=== PATIENT | male | born 1945 | race Caucasian/White ===

== ENCOUNTER 2018-12-13 09:22 | Inpatient (IN) | payer MEDICARE, OTHER ==
[~2018-12-13] VITALS: Ht 180.3 cm; Wt 127.9 kg
[2018-12-13] VITALS (11 sets, daily range): BP systolic 132–187; BP diastolic 67–87
[2018-12-13] MEDS ORDERED: nitroGLYCERIN 0.4mg SUBLingual tab SL PRN ×2 (09:45→19:35)
[2018-12-13] MEDS ORDERED: aspirin 325mg tablet PO ONE (10:35)
[2018-12-13 10:48] LABS: BASOPHILS % (AUTO) 0.5 % (0-1); EOSINOPHILS # (AUTO) 0.2 X10'3 (0-0.9); EOSINOPHILS % (AUTO) 2.6 % (0-6); HEMATOCRIT 40.1 % (42.0-52.0); HEMOGLOBIN 13.9 g/dl (14.0-17.9); LYMPHOCYTES # (AUTO) 1.3 X10'3 (1.1-4.8); LYMPHOCYTES % (AUTO) 17.5 % (21-51); MEAN CORPUSCULAR HEMOGLOBIN 31.5 PG (27.0-31.0); MEAN CORPUSCULAR HGB CONC 34.6 g/dL (33.0-36.5); MEAN CORPUSCULAR VOLUME 90.9 FL (78-98); MEAN PLATELET VOLUME 8.5 FL (7.4-10.4); MONOCYTES # (AUTO) 0.6 X10'3 (0-0.9); MONOCYTES % (AUTO) 7.9 % (2-12); NEUTROPHILS # (AUTO) 5.4 X10'3 (1.8-7.7); NEUTROPHILS % (AUTO) 71.5 % (42-75); PLATELET COUNT 184 X10'3 (140-440); RED BLOOD COUNT 4.41 X10'6 (4.70-6.10); RED CELL DISTRIBUTION WIDTH 13.5 % (11.5-14.5); WHITE BLOOD COUNT 7.6 X10'3 (4.5-11.0)
[2018-12-13 10:58] LABS: ALANINE AMINOTRANSFERASE 20 U/L (12-78); ALBUMIN 3.4 G/DL (3.4-5.0); ALBUMIN/GLOBULIN RATIO 1.1 (1.1-1.5); ALKALINE PHOSPHATASE 69 IU/L (46-116); ANION GAP 6 (8-16); ASPARTATE AMINO TRANSFERASE 17 U/L (10-37); BILIRUBIN,TOTAL 0.6 MG/DL (0.1-1.0); BLOOD UREA NITROGEN 20 MG/DL (7-18); BUN/CREATININE RATIO 17.4 (5.4-32.0); CALCIUM 8.2 MG/DL (8.5-10.1); CHLORIDE 107 MMOL/L (99-107); CREATININE 1.15 MG/DL (0.60-1.10); GLUCOSE 170 MG/DL (70-104); PARTIAL THROMBOPLASTIN TIME 31 SECONDS (22-32); POTASSIUM 3.5 MMOL/L (3.5-5.1); SODIUM 143 MMOL/L (135-145); TOTAL CARBON DIOXIDE 30.1 MMOL/L (24-32); TOTAL PROTEIN 6.4 G/DL (6.4-8.2); eGFR 63 ML/MIN
[2018-12-13] MEDS ORDERED: heparin 25,000 UNIT/250ml bag 250 ML IV SCH (11:07)
[2018-12-13] MEDS ORDERED: heparin 10,000 units/1 ML INJ IV ONE ×2 (11:10→11:15)
[2018-12-13] MEDS: normal saline 1000ml 1,000 ML IV SCH ×3 (11:27→23:24)
[2018-12-13] MEDS ORDERED: mag hydrox/Alum hydrox/simeth 30ml oral suspension PO PRN (11:30)
[2018-12-13] MEDS ORDERED: acetaminophen 325mg tablet PO PRN (11:30)
[2018-12-13] MEDS ORDERED: morphine 2 MG/ML inj. syringe IV PRN ×2 (11:30)
[2018-12-13] MEDS ORDERED: ondansetron/PF 4mg/2ml inj IV PRN (11:30)
[2018-12-13] MEDS ORDERED: magnesium hydroxide 30ml (MOM) UD suspension PO PRN (11:30)
[2018-12-13] MEDS ORDERED: POTA10TA15 PO (12:53)
[2018-12-13] MEDS ORDERED: ASPI-1265 PO (12:53)
[2018-12-13] MEDS ORDERED: ATEN100T PO (12:53)
[2018-12-13] MEDS ORDERED: OMEP20CA11 PO (12:53)
[2018-12-13] MEDS ORDERED: LIDO700A32 TOP (12:56)
[2018-12-13] MEDS ORDERED: METH500T6 PO (12:56)
[2018-12-13] MEDS ORDERED: GABA-532 PO (12:56)
[2018-12-13] MEDS ORDERED: DICL100G15 TOP (12:56)
[2018-12-13] MEDS ORDERED: LISI40TA4 PO (12:56)
[2018-12-13] MEDS ORDERED: HYDR25TA4 PO (12:56)
[2018-12-13] MEDS ORDERED: MSC30T PO (12:59)
[2018-12-13] MEDS ORDERED: HYDR-3965 PO (12:59)
[2018-12-13] MEDS ORDERED: MULT1TAB74 PO (12:59)
[2018-12-13] MEDS ORDERED: BETA1TAB20 PO (12:59)
[2018-12-13] MEDS ORDERED: normal saline 1000ml 1,000 ML IV SCH (13:20)
--- NOTE | 2018-12-13 14:39 | NUR ---
PAGER ID: [phone] MESSAGE: Good afternoon Dr. Franky Mccormick in 310 has quite elevated BP's. He is currently 162/106. He is slated to have a angiogram at 1700. Can I get an antihypertensive please? Art, [phone]
[2018-12-13] MEDS ORDERED: hydrALAZINE 20mg/ml inj. IV PRN (14:45)
[2018-12-13] MEDS ORDERED: DICLOFENAC SODIUM 2 GM TOP PRN (14:45)
[2018-12-13] MEDS ORDERED: DICLOFENAC TP (15:00)
[2018-12-13] MEDS ORDERED: LORazepam 1 MG tablet PO ONE (15:00)
[2018-12-13] MEDS ORDERED: diphenhydrAMINE 25mg capsule PO ONE (15:00)
--- NOTE | 2018-12-13 15:35 | NUR ---
Pt prepped for angiogram. Second IV started in pt left arm.
[2018-12-13] MEDS ORDERED: non-formulary drug (Methocarbamol 2 TAB) PO SCH (16:00)
--- NOTE | 2018-12-13 16:13 | NUR ---
Lab obtaining samples
--- NOTE | 2018-12-13 17:10 | NUR ---
PAGER ID: [phone] MESSAGE: Pt Jace in 310 is a diabetic. I don't have any coverage for him. If possible, can you put orders in? Thanks, Art [phone]
[2018-12-13] MEDS ORDERED: iohexol 350MG/ML 100ml bottle IV ONE (17:23)
[2018-12-13] MEDS ORDERED: LIDOcaine 1% (10mg/ml)w/preservative injection 20ml MDV ONE (17:23)
[2018-12-13] MEDS ORDERED: midazolam 2 mg/2 ml injection ONE ×2 (17:23→17:55)
[2018-12-13] MEDS ORDERED: iohexol 350 MG/ML 50ML vial IV ONE ×4 (17:23→18:32)
[2018-12-13] MEDS ORDERED: fentaNYL/PF 50MCG/1 ML 2ML syringe ONE (17:23)
[2018-12-13 17:36] LABS: HEMOGLOBIN A1C 6.5 % (4.5-6.2)
--- NOTE | 2018-12-13 17:51 | NUR ---
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
[2018-12-13] MEDS ORDERED: proCHLORperazine 10 MG/2 ml inj ONE (17:53)
[2018-12-13] MEDS ORDERED: nitroGLYCERIN-Tridil 50MG/D5W 250 ML IV ONE (18:06)
--- NOTE | 2018-12-13 18:15 | NUR ---
Patient in room MED 310. I have received report from Art, RN and had the opportunity to ask questions and assume patient care.
--- NOTE | 2018-12-13 18:50 | NUR ---
DR. HIDALGO CALLED FROM [facility]. PATIENT WILL BE COMING BACK TO ACCE. DR. GOODE WILL CONSULT IN THE AM.
--- NOTE | 2018-12-13 19:05 | NUR ---
Received report from Nicolasa in [place] [employer]. Reports that patient receive a right femoral approach with a Perclose. Per Dr. Costa patient is to lay flat for 8 hours. Patient will have consult with Dr. Victor in the morning to for surgical intervention. Orders are to restart Heparin at 2000 hrs with no bolus and follow protocol for cardiac ptt. Patient to have Carotid and vein mapping studies in the morning and patient will begin Lipitor 20 mg daily and start Hyperglycemic protocol as well. Patient received 3 mg of Versed and 100 mcg of Fentanyl, and 10 mg of compazine. Will await patient's arrival back to the ACCE unit.
--- NOTE | 2018-12-13 19:20 | NUR ---
Patient arrived to the unit he is alert and oriented but somewhat sleepy after his Cath procedure. Patient came by way of parker and ELIZABETH Baldwin from manager cardiac cath gave report again and went over the orders from Dr. Costa with me. Assessed patient to include palpation of right groin which is asymptomatic, with a dressing in place. Peripheral pulses are present. Assumed care of patient and will continue to monitor for duration of shift.
[2018-12-13] MEDS ORDERED: OXAZEpam 15mg capsule PO PRN (19:40)
[2018-12-13] MEDS ORDERED: glucagon, human recombinant 1mg kit SUBCUT PRN (19:40)
[2018-12-13] MEDS ORDERED: proCHLORperazine 10 MG/2 ml inj IV PRN (19:40)
[2018-12-13] MEDS ORDERED: insulin Lispro (HumaLOG) vial - multi-dose SQ SCH (19:40)
[2018-12-13] MEDS ORDERED: dextrose ORAL solution 15 GM/59 ML bottle PO PRN ×2 (19:40)
[2018-12-13] MEDS ORDERED: normal saline 1000ml 1,000 ML IV ONE (19:40)
[2018-12-13] MEDS ORDERED: dextrose 50%-water 50ml dispensing syringe IV PRN ×2 (19:40)
[2018-12-13] MEDS ORDERED: MESSAGE TO PHARMACY PO ONE (19:40)
[2018-12-13] MEDS ORDERED: HYDROcodone/acetaminophen 5mg/325mg tablet PO PRN (19:40)
--- NOTE | 2018-12-13 19:50 | NUR ---
DR. HIDALGO CALLED. ORDERS TO MAKE PATIENT NPO AT MIDNIGHT, D/C 12 HOUR TROPONIN
[2018-12-13] MEDS ORDERED: carVEDilol 3.125mg tablet PO SCH (20:00)
[2018-12-13] MEDS: heparin 25,000 UNIT/250ml bag 250 ML IV SCH (20:12)
--- NOTE | 2018-12-13 20:15 | NUR ---
Patient has had bigeminal PVCs. Rhythm strip printed and placed in paper chart.
[2018-12-13] MEDS: gabapentin 300mg capsule PO SCH (20:23)
[2018-12-13] MEDS: HYDROcodone/acetaminophen 5mg/325mg tablet PO SCH (20:24)
[2018-12-13] MEDS: morphine ER 30mg tablet PO SCH (20:24)
[2018-12-13] MEDS: cyclobenzaprine 10mg tablet PO SCH (20:24)
[2018-12-13] MEDS: insulin glargine (Lantus) pen - multi-dose SQ SCH (21:00)
[2018-12-13] MEDS ORDERED: aspirin 81mg tab.chew PO SCH (21:00)
--- NOTE | 2018-12-13 23:44 | NUR ---
Blood glucose not done at this time. Addendum: 12/13/18 at 2344 by Do Rey RN Amended: Links added.
[2018-12-14] MEDS: morphine ER 30mg tablet PO SCH ×4 (01:44→20:46)
[2018-12-14 02:00] VITALS: BP 169/80
[2018-12-14 02:27] LABS: BASOPHILS % (AUTO) 0.7 % (0-1); EOSINOPHILS # (AUTO) 0.2 X10'3 (0-0.9); EOSINOPHILS % (AUTO) 3.4 % (0-6); HEMOGLOBIN 14.2 g/dl (14.0-17.9); LYMPHOCYTES # (AUTO) 1.8 X10'3 (1.1-4.8); LYMPHOCYTES % (AUTO) 25.6 % (21-51); MEAN CORPUSCULAR HEMOGLOBIN 31.2 PG (27.0-31.0); MEAN CORPUSCULAR HGB CONC 34.7 g/dL (33.0-36.5); MEAN CORPUSCULAR VOLUME 89.8 FL (78-98); MEAN PLATELET VOLUME 8.4 FL (7.4-10.4); MONOCYTES # (AUTO) 0.5 X10'3 (0-0.9); MONOCYTES % (AUTO) 7.3 % (2-12); NEUTROPHILS # (AUTO) 4.4 X10'3 (1.8-7.7); PLATELET COUNT 165 X10'3 (140-440); RED BLOOD COUNT 4.56 X10'6 (4.70-6.10); RED CELL DISTRIBUTION WIDTH 13.8 % (11.5-14.5); WHITE BLOOD COUNT 7.1 X10'3 (4.5-11.0)
[2018-12-14 02:31] LABS: ALBUMIN 3.3 G/DL (3.4-5.0); ANION GAP 5 (8-16); BLOOD UREA NITROGEN 13 MG/DL (7-18); BUN/CREATININE RATIO 12.3 (5.4-32.0); CALCIUM 8.4 MG/DL (8.5-10.1); CHLORIDE 105 MMOL/L (99-107); CREATININE 1.06 MG/DL (0.60-1.10); GLUCOSE 131 MG/DL (70-104); MAGNESIUM 1.9 MG/DL (1.5-2.4); POTASSIUM 3.2 MMOL/L (3.5-5.1); SODIUM 141 MMOL/L (135-145); TOTAL CARBON DIOXIDE 31.2 MMOL/L (24-32); eGFR 69 ML/MIN
[2018-12-14] MEDS: heparin 10,000 units/1 ML INJ IV PRN ×2 (02:54→17:11)
[2018-12-14] MEDS ORDERED: magnesium 2GM in 50ml NS 50 ML IV PRN (03:30)
[2018-12-14] MEDS ORDERED: magnesium 4gm in 100ml NS 100 ML IV PRN (03:30)
[2018-12-14] MEDS ORDERED: potassium CL 10mEq/100ml bag 100 ML IV PRN (03:30)
[2018-12-14] MEDS ORDERED: potassium Cl 20 mEq SR tablet PO PRN (03:30)
[2018-12-14] MEDS ORDERED: magnesium Cl slow-release 64mg tablet PO PRN (03:30)
[2018-12-14] MEDS: potassium Cl 20 mEq SR tablet PO PRN ×3 (03:49→16:15)
[2018-12-14 06:00] VITALS: BP 142/70
--- NOTE | 2018-12-14 06:24 | NUR ---
Problems reprioritized. Patient report given, questions answered & plan of care reviewed with ELIZABETH Lea.
[2018-12-14] MEDS: gabapentin 300mg capsule PO SCH ×3 (07:50→20:45)
[2018-12-14] MEDS: HYDROcodone/acetaminophen 5mg/325mg tablet PO SCH ×2 (07:52→20:47)
[2018-12-14] MEDS: cyclobenzaprine 10mg tablet PO SCH ×3 (07:52→20:46)
[2018-12-14] MEDS: atorvastatin 20mg tablet PO SCH (07:53)
[2018-12-14] MEDS: atenolol 50mg tablet PO SCH (07:54)
[2018-12-14] MEDS: lisinopril 20mg tablet PO SCH (07:55)
[2018-12-14] MEDS: multivitamins, therapeutics tablet PO SCH (07:55)
[2018-12-14] MEDS: aspirin 81mg tablet.DR PO SCH (07:56)
[2018-12-14] MEDS: pantoprazole 40mg Tablet.DR PO SCH (07:56)
[2018-12-14] MEDS: potassium chloride 10mEq ER tablet PO SCH (07:56)
[2018-12-14] MEDS ORDERED: atorvastatin 20mg tablet PO SCH (08:00)
[2018-12-14] MEDS ORDERED: non-formulary drug (Potassium Chloride 1 TAB) PO SCH (08:00)
[2018-12-14] MEDS ORDERED: non-formulary drug (Lisinopril* 1 TAB) PO SCH (08:00)
[2018-12-14] MEDS ORDERED: non-formulary drug (Multivitamins 1 TAB) PO SCH (08:00)
[2018-12-14] MEDS ORDERED: ATENOLOL PO SCH (08:00)
[2018-12-14] MEDS ORDERED: non-formulary drug (Omeprazole 1 CAP) PO SCH (08:00)
[2018-12-14] MEDS ORDERED: insulin regular, human 100 UNIT in normal saline 100ml IV soln 100 ML IV SCH ×2 (09:14)
[2018-12-14] MEDS ORDERED: MESSAGE TO NURSING PO ONE ×5 (09:15→10:00)
[2018-12-14] MEDS ORDERED: dextrose 50%-water 50ml dispensing syringe IV PRN (09:15)
[2018-12-14] MEDS ORDERED: cefazolin/dext.iso 2gm/50ml 50 ML IV ONE (09:15)
[2018-12-14] MEDS ORDERED: vancomycin/NS 1 GM ADD-VANTAGE 250 ML IV ONE (09:15)
[2018-12-14] MEDS ORDERED: Cefazolin 2GM/100ML NS IVPB 100 ML IV ONE (09:50)
[2018-12-14] MEDS ORDERED: cefazolin/dext.iso 2gm/100ml 100 ML IV ONE (09:50)
[2018-12-14] MEDS: HYDROcodone/acetaminophen 10/325mg tab PO PRN (10:22)
[2018-12-14 11:00] VITALS: BP 142/74
--- NOTE | 2018-12-14 12:52 | NUR ---
PAGED VASCULAR "PT IN 310 IS GOING TO CABG TOMORROW, NEEDS VEIN MAPPING AND CAROTID US. THANK YOU, LALA JOHNSON [phone]"
--- NOTE | 2018-12-14 12:53 | NUR ---
PAGED RESPIRATORY "PT IN 310 IS GOING TO CABG TOMORROW, NEEDS ABG AND PFTS. THANK YOU, LALA JOHNSON [phone]"
--- NOTE | 2018-12-14 12:54 | NUR ---
PAGED PT "PT IN 310 IS GOING TO CABG TOMORROW, NEEDS PT EVAL. THANK YOU, LALA JOHNSON [phone]"
--- NOTE | 2018-12-14 14:16 | NUR ---
CALLED DR. GOODE TO INFORM HIM THE PATIENT'S SIGNIFICANT OTHER IS HERE AND WOULD LIKE TO SPEAK WITH HIM. LEFT A MESSAGE
[2018-12-14 14:21] LABS: ABG HCO3 27.6 mmol/L (22.0-26.0); ABG OXYGEN SATURATION 94.8 % (95-98); ABG PCO2 (T) 42.4 mmHg (35.0-45.0); ABG PH (T) 7.432 (7.350-7.450); ABG PO2 (T) 73.6 mmHg (83-108); ALLEN'S TEST Positive; FMetHb 0.3 % (0.3-1.12); FO2Hb 93.6 % (94-100); RESPIRATORY RATE (OBSERVED) 19 b/min; TOTAL HEMOGLOBIN 13.4 G/dl (14.0-17.9)
[2018-12-14 15:00] VITALS: BP 139/68
--- NOTE | 2018-12-14 16:50 | NUR ---
NEW BAG OF HEPARIN HUNG AT THIS TIME. UNABLE TO SCAN. 2 RN CO-SIGNED BAG BEING HUNG. NO CHANGE IN RATE. HEPARIN IS INFUSING AT 12UNITS/HOUR. WILL AWAIT PTT RESULT FOR
[2018-12-14] MEDS: heparin 25,000 UNIT/250ml bag 250 ML IV SCH (17:11)
[2018-12-14] MEDS: normal saline 1000ml 1,000 ML IV SCH (17:27)
--- NOTE | 2018-12-14 18:05 | NUR ---
Problems reprioritized. Patient report given, questions answered & plan of care reviewed with EVELINA.
--- NOTE | 2018-12-14 18:15 | NUR ---
Patient in room MED 310. I have received report from ELIZABETH Lea and had the opportunity to ask questions and assume patient care.
--- NOTE | 2018-12-14 19:30 | NUR ---
PATIENT'S GIRLFRIEND APPROACHED ASKING FOR ME TO SIGN AND WITNESS THE PATIENT'S WILL. I STATED THAT I DIDN'T FEEL COMFORTABLE DOING THAT AND DID NOT BELIEVE THAT IT WAS WITHIN MY SCOPE OF PRACTICE. TOLD HER I WOULD CHECK WITH MY NURSING MEDIA EXECUTIVE AND GET BACK TO HER. SPOKE WITH NURSING MEDIA EXECUTIVE MITA AND HE SAID THAT SHE WOULD NEED AN CONSTRUCTION SUPERVISOR TO SIGN AND WITNESS THE WILL THIS IS NOT SOMETHING THAT THE HOSPITAL STAFF DOES. I RELAYED THIS INFORMATION TO THE PATIENT AND GIRLFRIEND AND THEY SAID THAT THEY UNDERSTOOD.
[2018-12-14] MEDS: metoprolol tartrate 12.5mg (1/2 tablet) PO SCH (20:46)
[2018-12-14] MEDS: mupirocin 2% nasal ointment 1gm UD NS SCH (20:48)
[2018-12-14] MEDS: insulin glargine (Lantus) pen - multi-dose SQ SCH (21:00)
[2018-12-14 22:00] VITALS: BP 135/67
[2018-12-15] VITALS (22 sets, daily range): BP systolic 99–145; BP diastolic 48–80
[2018-12-15] MEDS: HYDROcodone/acetaminophen 10/325mg tab PO PRN ×3 (00:21→12:06)
[2018-12-15] MEDS: heparin 25,000 UNIT/250ml bag 250 ML IV SCH (01:29)
[2018-12-15] MEDS: morphine ER 30mg tablet PO SCH ×2 (03:24→08:00)
[2018-12-15] MEDS: normal saline 1000ml 1,000 ML IV SCH (03:27)
[2018-12-15] MEDS ORDERED: gabapentin 400mg capsule PO ONE (04:12)
[2018-12-15] MEDS ORDERED: ceFAZolin 1000mg inj ONE (05:16)
[2018-12-15] MEDS ORDERED: ROPIVAcaine 0.5% (5mg/ml) 30ml vial ONE (05:16)
[2018-12-15] MEDS: insulin regular, human 100 UNIT in normal saline 100ml IV soln 100 ML IV SCH ×4 (05:20→12:54)
--- NOTE | 2018-12-15 05:26 | NUR ---
Orienteer documentation: I have reviewed and agree with all interventions, assessments performed and documented by ELIZABETH Polo. Orienteer Medication Administration: For this medication-pass time frame, all medication were reviewed, dispensed, administered and documented per hospital policy by ELIZABETH Polo.
[2018-12-15 05:46] LABS: BASOPHILS % (AUTO) 0.7 % (0-1); EOSINOPHILS # (AUTO) 0.3 X10'3 (0-0.9); EOSINOPHILS % (AUTO) 4.8 % (0-6); HEMATOCRIT 37.4 % (42.0-52.0); HEMOGLOBIN 13.1 g/dl (14.0-17.9); LYMPHOCYTES # (AUTO) 1.3 X10'3 (1.1-4.8); LYMPHOCYTES % (AUTO) 25.6 % (21-51); MEAN CORPUSCULAR HEMOGLOBIN 31.4 PG (27.0-31.0); MEAN CORPUSCULAR HGB CONC 34.9 g/dL (33.0-36.5); MEAN CORPUSCULAR VOLUME 90.1 FL (78-98); MEAN PLATELET VOLUME 8.1 FL (7.4-10.4); MONOCYTES # (AUTO) 0.5 X10'3 (0-0.9); NEUTROPHILS # (AUTO) 3.2 X10'3 (1.8-7.7); NEUTROPHILS % (AUTO) 59.9 % (42-75); PLATELET COUNT 143 X10'3 (140-440); RED BLOOD COUNT 4.15 X10'6 (4.70-6.10); RED CELL DISTRIBUTION WIDTH 13.7 % (11.5-14.5); WHITE BLOOD COUNT 5.3 X10'3 (4.5-11.0)
[2018-12-15 05:50] LABS: ANION GAP 7 (8-16); BLOOD UREA NITROGEN 14 MG/DL (7-18); BUN/CREATININE RATIO 12.7 (5.4-32.0); CALCIUM 8.1 MG/DL (8.5-10.1); CHLORIDE 106 MMOL/L (99-107); GLUCOSE 203 MG/DL (70-104); POTASSIUM 3.8 MMOL/L (3.5-5.1); SODIUM 141 MMOL/L (135-145); TOTAL CARBON DIOXIDE 27.7 MMOL/L (24-32); eGFR 66 ML/MIN
[2018-12-15] MEDS ORDERED: vancomycin/NS 1 GM ADD-VANTAGE 250 ML IV ONE (06:00)
[2018-12-15] MEDS ORDERED: cefazolin/dext.iso 2gm/100ml 100 ML IV ONE (06:00)
--- NOTE | 2018-12-15 06:15 | NUR ---
Problems reprioritized. Patient report given, questions answered & plan of care reviewed with Sherie RN, Shannan RN, ELIZABETH Mccollum.
[2018-12-15] MEDS ORDERED: LORazepam 2 mg/ml vial IV ONE (06:30)
[2018-12-15] MEDS ORDERED: famotidine 20mg tablet PO ONE (06:30)
--- NOTE | 2018-12-15 07:00 | NUR ---
Patient in room MED 310. I have received report from Do JOHNSON and had the opportunity to ask questions and assume patient care.
[2018-12-15] MEDS: gabapentin 300mg capsule PO SCH ×3 (07:20→20:25)
[2018-12-15] MEDS: mupirocin 2% nasal ointment 1gm UD NS SCH (07:20)
[2018-12-15] MEDS: metoprolol tartrate 12.5mg (1/2 tablet) PO SCH (07:28)
[2018-12-15] MEDS: pantoprazole 40mg Tablet.DR PO SCH (07:30)
--- NOTE | 2018-12-15 07:32 | NUR ---
Patient left for CVOR for CABG at this time.
[2018-12-15] MEDS ORDERED: DOPamine/D5W 400mg/250ml bag IV ONE (07:41)
[2018-12-15] MEDS ORDERED: protamine sulf. 10mg/ml inj. IV ONE (07:41)
[2018-12-15] MEDS ORDERED: sevoflurane 250ml liquid IH ONE (07:41)
[2018-12-15] MEDS ORDERED: nitroGLYCERIN in D5W 50mg/250ml (Tridil) infusion IV ONE (07:41)
[2018-12-15] MEDS ORDERED: SUFENTANIL CITRATE 50 MCG/ML 2ml ampule IV ONE (07:45)
[2018-12-15] MEDS ORDERED: propofol inj 20 ML IV ONE (07:46)
[2018-12-15] MEDS ORDERED: midazolam 2 mg/2 ml injection ONE (07:46)
[2018-12-15] MEDS: HYDROcodone/acetaminophen 5mg/325mg tablet PO SCH (08:00)
[2018-12-15] MEDS: atorvastatin 20mg tablet PO SCH (08:00)
[2018-12-15] MEDS: atenolol 50mg tablet PO SCH (08:00)
[2018-12-15] MEDS: lisinopril 20mg tablet PO SCH (08:00)
[2018-12-15] MEDS: multivitamins, therapeutics tablet PO SCH (08:00)
[2018-12-15] MEDS: cyclobenzaprine 10mg tablet PO SCH (08:00)
[2018-12-15] MEDS: potassium chloride 10mEq ER tablet PO SCH (08:00)
[2018-12-15] MEDS: aspirin 81mg tablet.DR PO SCH (08:00)
[2018-12-15] MEDS ORDERED: insulin glargine (Lantus) pen - multi-dose SQ PRN (08:00)
[2018-12-15] MEDS ORDERED: NUT.TX.IMPAIRED DIGEST FXN (Ensure Clear) 237 ML PO ONE (08:00)
[2018-12-15 08:35] LABS: ABG BASE EXCESS 0.5 mmol/L (-2.0-3.0); ABG HCO3 25.9 mmol/L (22.0-26.0); ABG OXYGEN SATURATION 96.4 % (95-98); ABG PCO2 44.4 mmHg (35.0-45.0); ABG PH 7.383 (7.350-7.450); ABG PO2 91.2 mmHg (60.0-100.0); CL (ABG) 102 mmol/L (99-107); FCOHb 1.4 % (0.5-1.5); FMetHb 0.3 % (0.3-1.12); FO2Hb 94.8 % (94-100); GLUCOSE (ABG) 144 mg/dl (70-104); IONIZED CA (ABG) 1.13 mmol/L (1.03-1.32); K (ABG) 3.7 mmol/L (3.3-5.1); NA (ABG) 137 mmol/L (135-145); TOTAL HEMOGLOBIN 12.5 G/dl (14.0-17.9)
[2018-12-15] MEDS ORDERED: papaverine 30 mg/ml 2ml inj. IA ONE (08:56)
[2018-12-15] MEDS ORDERED: heparin 10,000 units/1 ML INJ IR ONE (08:56)
[2018-12-15 09:06] LABS: ACT @ 1.70 U 283 SEC (193-297); ACT @ 2.84 U 375 SEC (260-420); BASELINE ACT 145 SEC (101-148)
[2018-12-15 09:35] LABS: ABG BASE EXCESS VENOUS 1.5 mmol/L; ABG HCO3 VENOUS 27.4 mmol/L; ABG PCO2 VENOUS 49.3 mmHg; ABG PO2 VENOUS 35.8 mmHg; CL (ABG) 103 mmol/L (99-107); FCOHb VENOUS 1.6 %; FHHb VENOUS 33.9 %; FO2Hb VENOUS 64.5 %; GLUCOSE (ABG) 127 mg/dl (70-104); IONIZED CA (ABG) 1.09 mmol/L (1.03-1.32); K (ABG) 3.6 mmol/L (3.3-5.1); NA (ABG) 136 mmol/L (135-145); TOTAL HEMOGLOBIN 11.4 G/dl (14.0-17.9)
[2018-12-15 10:05] LABS: ABG BASE EXCESS 2.5 mmol/L (-2.0-3.0); ABG HCO3 26.8 mmol/L (22.0-26.0); ABG OXYGEN SATURATION 99.5 % (95-98); ABG PCO2 40.3 mmHg (35.0-45.0); ABG PH 7.441 (7.350-7.450); ABG PO2 488.6 mmHg (60.0-100.0); CL (ABG) 102 mmol/L (99-107); FCOHb 1.1 % (0.5-1.5); FMetHb 0.3 % (0.3-1.12); FO2Hb 98.1 % (94-100); GLUCOSE (ABG) 120 mg/dl (70-104); IONIZED CA (ABG) 0.99 mmol/L (1.03-1.32); K (ABG) 4.4 mmol/L (3.3-5.1); NA (ABG) 135 mmol/L (135-145)
[2018-12-15 10:16] LABS: ABG BASE EXCESS VENOUS 1.6 mmol/L; ABG HCO3 VENOUS 26.6 mmol/L; ABG PCO2 VENOUS 43.5 mmHg; ABG PO2 VENOUS 68.1 mmHg; CL (ABG) 101 mmol/L (99-107); FCOHb VENOUS 1.5 %; FHHb VENOUS 8.1 %; FMetHb VENOUS 0.3 %; FO2Hb VENOUS 90.1 %; GLUCOSE (ABG) 116 mg/dl (70-104); IONIZED CA (ABG) 1.04 mmol/L (1.03-1.32); K (ABG) 4.6 mmol/L (3.3-5.1); NA (ABG) 135 mmol/L (135-145); TOTAL HEMOGLOBIN 10.7 G/dl (14.0-17.9)
[2018-12-15 10:41] LABS: ABG HCO3 25.3 mmol/L (22.0-26.0); ABG OXYGEN SATURATION 99.5 % (95-98); ABG PCO2 38.8 mmHg (35.0-45.0); ABG PH 7.432 (7.350-7.450); ABG PO2 436.3 mmHg (60.0-100.0); CL (ABG) 102 mmol/L (99-107); FCOHb 1.1 % (0.5-1.5); FMetHb 0.3 % (0.3-1.12); FO2Hb 98.1 % (94-100); GLUCOSE (ABG) 123 mg/dl (70-104); IONIZED CA (ABG) 1.01 mmol/L (1.03-1.32); K (ABG) 4.4 mmol/L (3.3-5.1); NA (ABG) 135 mmol/L (135-145); TOTAL HEMOGLOBIN 10.3 G/dl (14.0-17.9)
[2018-12-15 11:10] LABS: ABG BASE EXCESS 4.3 mmol/L (-2.0-3.0); ABG HCO3 28.3 mmol/L (22.0-26.0); ABG OXYGEN SATURATION 99.1 % (95-98); ABG PCO2 39.8 mmHg (35.0-45.0); ABG PH 7.469 (7.350-7.450); ABG PO2 366.4 mmHg (60.0-100.0); CL (ABG) 101 mmol/L (99-107); FCOHb 0.9 % (0.5-1.5); FMetHb 0.2 % (0.3-1.12); GLUCOSE (ABG) 137 mg/dl (70-104); IONIZED CA (ABG) 1.12 mmol/L (1.03-1.32); K (ABG) 4.5 mmol/L (3.3-5.1); NA (ABG) 133 mmol/L (135-145); TOTAL HEMOGLOBIN 9.2 G/dl (14.0-17.9)
[2018-12-15 11:46] LABS: ABG BASE EXCESS VENOUS 2.4 mmol/L; ABG HCO3 VENOUS 27.7 mmol/L; ABG PCO2 VENOUS 45.8 mmHg; ABG PO2 VENOUS 39.1 mmHg; CL (ABG) 103 mmol/L (99-107); FCOHb VENOUS 1.4 %; FHHb VENOUS 27.8 %; FMetHb VENOUS 0.4 %; FO2Hb VENOUS 70.4 %; GLUCOSE (ABG) 159 mg/dl (70-104); IONIZED CA (ABG) 1.14 mmol/L (1.03-1.32); K (ABG) 4.3 mmol/L (3.3-5.1); NA (ABG) 137 mmol/L (135-145); TOTAL HEMOGLOBIN 10.2 G/dl (14.0-17.9)
[2018-12-15] MEDS ORDERED: rocuronium 10mg/ml inj IV ONE ×3 (12:03)
[2018-12-15] MEDS ORDERED: DOPamine 400mg/D5W 250ml 250 ML IV PRN (12:26)
[2018-12-15] MEDS ORDERED: niCARDipine-NS 40mg/200ml IVPB 200 ML IV PRN (12:26)
[2018-12-15] MEDS ORDERED: nitroGLYCERIN-Tridil 50MG/D5W 250 ML IV PRN (12:26)
[2018-12-15] MEDS ORDERED: sodium phosphate inj. 15 MMOL in dextrose 5%-water 150 ML IV PRN (12:30)
[2018-12-15] MEDS ORDERED: potassium Cl 20 mEq SR tablet PO PRN (12:30)
[2018-12-15] MEDS ORDERED: magnesium 4gm in 100ml NS 100 ML IV PRN (12:30)
[2018-12-15] MEDS ORDERED: magnesium hydroxide 30ml (MOM) UD suspension PO PRN (12:30)
[2018-12-15] MEDS ORDERED: morphine 4 MG/ML inj SYRINge IV PRN (12:30)
[2018-12-15] MEDS ORDERED: ondansetron/PF 4mg/2ml inj IV PRN (12:30)
[2018-12-15] MEDS ORDERED: sodium phosphate inj. 30 MMOL in dextrose 5%-water 250 ML IV PRN (12:30)
[2018-12-15] MEDS ORDERED: insulin regular, human inj. 100 UNITS in normal saline 100ml IV soln 100 ML IV SCH ×2 (12:30)
[2018-12-15] MEDS ORDERED: pantoprazole 40 MG vial IV ONE (12:30)
[2018-12-15] MEDS ORDERED: Neutra Phos packet PO PRN (12:30)
[2018-12-15] MEDS ORDERED: acetaminophen 325mg tablet PO PRN (12:30)
[2018-12-15] MEDS ORDERED: normal saline 250ml IV soln 250 ML IV PRN (12:30)
[2018-12-15] MEDS ORDERED: metoclopramide 5 mg/ml inj IV PRN (12:30)
[2018-12-15] MEDS ORDERED: dextrose 50%-water 50ml dispensing syringe IV PRN (12:30)
--- NOTE | 2018-12-15 12:30 | NUR ---
Received to room 2008, accompanied by MDs and surgical crew. Placed on ventilator, to threat monitoring analyst, arterial line and PA line pressure monitored. Chest tubes to suction at 20 cm. Dumont cath to gravity drainage. Dressings are dry and intact. See assessment record. All vasoactive drugs are infusing via central line.
[2018-12-15] MEDS: sodium chloride 0.45% 1,000 ML IV SCH (12:44)
[2018-12-15 12:50] LABS: ACTIVATED CLOTTING TIME 120 SEC (101-148)
[2018-12-15 12:59] LABS: ABG OXYGEN SATURATION 91.4 % (95-98); ABG PCO2 (T) 43.7 mmHg (35.0-45.0); ABG PH (T) 7.408 (7.350-7.450); ABG PO2 (T) 63.3 mmHg (83-108); FCOHb 0.7 % (0.5-1.5); FMetHb 0.1 % (0.3-1.12); FO2Hb 90.7 % (94-100); MINUTE VOLUME 8 L/min; PEEP 5 cm H2O; RESPIRATORY RATE 12 b/min; RESPIRATORY RATE (OBSERVED) 12 b/min; TIDAL VOLUME 600 mL; TOTAL HEMOGLOBIN 12.1 G/dl (14.0-17.9)
[2018-12-15] MEDS ORDERED: phenylephrine 10mg/ml inj. ONE (13:00)
[2018-12-15] MEDS ORDERED: papaverine 30 mg/ml 2ml inj. ONE (13:00)
[2018-12-15] MEDS ORDERED: potassium Cl 2 mEq/ml inj IV ONE (13:00)
[2018-12-15] MEDS: insulin Lispro (HumaLOG) vial - multi-dose SQ SCH ×2 (13:00→17:04)
[2018-12-15] MEDS ORDERED: aminocaproic acid 250 MG/1 ML inj. ONE (13:00)
[2018-12-15] MEDS ORDERED: methylPREDNISolone sod. succ. 500mg inj ONE (13:00)
[2018-12-15] MEDS ORDERED: heparin 10,000 units/1 ML INJ ONE ×2 (13:00)
[2018-12-15] MEDS ORDERED: LIDOcaine 2% (20 mg/ml) 5ml cardiac syringe ONE (13:00)
[2018-12-15] MEDS ORDERED: sodium bicarbonate (8.4%) 1 mEq/ml syringe ONE (13:00)
[2018-12-15] MEDS ORDERED: calcium chloride 100 MG/1 ML inj IV ONE (13:00)
[2018-12-15] MEDS ORDERED: MAGNESIUM SULFATE 4 MEQ/ML (5gm/10ml) injection ONE (13:00)
[2018-12-15] MEDS ORDERED: albumin (human) 25% 100 ML IV solution IV ONE (13:00)
[2018-12-15 13:10] LABS: BASOPHILS % (AUTO) 0.2 % (0-1); EOSINOPHILS # (AUTO) 0.1 X10'3 (0-0.9); EOSINOPHILS % (AUTO) 0.6 % (0-6); HEMATOCRIT 33.7 % (42.0-52.0); HEMOGLOBIN 11.9 g/dl (14.0-17.9); LYMPHOCYTES # (AUTO) 0.5 X10'3 (1.1-4.8); MEAN CORPUSCULAR HEMOGLOBIN 32.1 PG (27.0-31.0); MEAN CORPUSCULAR HGB CONC 35.2 g/dL (33.0-36.5); MEAN CORPUSCULAR VOLUME 91.3 FL (78-98); MEAN PLATELET VOLUME 8.3 FL (7.4-10.4); MONOCYTES # (AUTO) 0.3 X10'3 (0-0.9); MONOCYTES % (AUTO) 3.8 % (2-12); NEUTROPHILS % (AUTO) 89.4 % (42-75); PLATELET COUNT 125 X10'3 (140-440); RED BLOOD COUNT 3.69 X10'6 (4.70-6.10); RED CELL DISTRIBUTION WIDTH 13.5 % (11.5-14.5)
[2018-12-15] MEDS: albumin (Human) 5% 250ml 250 ML IV PRN ×5 (13:10→17:04)
[2018-12-15 13:21] LABS: PARTIAL THROMBOPLASTIN TIME 31 SECONDS (22-32)
[2018-12-15 13:22] LABS: ALANINE AMINOTRANSFERASE 33 U/L (12-78); ALBUMIN 2.5 G/DL (3.4-5.0); ALBUMIN/GLOBULIN RATIO 1.1 (1.1-1.5); ALKALINE PHOSPHATASE 61 IU/L (46-116); ANION GAP 6 (8-16); ASPARTATE AMINO TRANSFERASE 63 U/L (10-37); BILIRUBIN,TOTAL 0.7 MG/DL (0.1-1.0); BLOOD UREA NITROGEN 14 MG/DL (7-18); BUN/CREATININE RATIO 12.5 (5.4-32.0); CALCIUM 8.6 MG/DL (8.5-10.1); CHLORIDE 109 MMOL/L (99-107); CREATININE 1.12 MG/DL (0.60-1.10); GLUCOSE 152 MG/DL (70-104); MAGNESIUM 2.3 MG/DL (1.5-2.4); PHOSPHORUS 2.5 MG/DL (2.3-4.5); SODIUM 142 MMOL/L (135-145); TOTAL CARBON DIOXIDE 26.9 MMOL/L (24-32); TOTAL PROTEIN 4.8 G/DL (6.4-8.2); eGFR 64 ML/MIN
[2018-12-15] MEDS ORDERED: famotidine/PF 10 mg/ml inj IV ONE (13:25)
[2018-12-15] MEDS: potassium Cl 20mEq/100mL bag 100 ML IV PRN ×4 (14:11→22:39)
[2018-12-15] MEDS: magnesium 2GM in 50ml NS 50 ML IV PRN ×2 (14:11→19:28)
[2018-12-15] MEDS: ceFAZolin 1GM/D5W- ADD-VANTAGE 50 ML IV SCH ×2 (16:30→23:57)
[2018-12-15] MEDS: morphine 4 MG/ML inj SYRINge IV PRN ×2 (17:10→21:39)
--- NOTE | 2018-12-15 18:22 | NUR ---
Problems reprioritized. Patient report given, questions answered & plan of care reviewed with Cici JOHNSON.
--- NOTE | 2018-12-15 18:25 | NUR ---
Patient in room CICU 2008. I have received report from Dominique JOHNSON and had the opportunity to ask questions and assume patient care.
[2018-12-15 18:29] LABS: BASOPHILS % (AUTO) 0 % (0-1); EOSINOPHILS % (AUTO) 0.1 % (0-6); HEMATOCRIT 27.4 % (42.0-52.0); HEMOGLOBIN 9.4 g/dl (14.0-17.9); LYMPHOCYTES # (AUTO) 0.4 X10'3 (1.1-4.8); LYMPHOCYTES % (AUTO) 4.7 % (21-51); MEAN CORPUSCULAR HEMOGLOBIN 31.4 PG (27.0-31.0); MEAN CORPUSCULAR HGB CONC 34.5 g/dL (33.0-36.5); MEAN CORPUSCULAR VOLUME 90.9 FL (78-98); MEAN PLATELET VOLUME 8.7 FL (7.4-10.4); MONOCYTES # (AUTO) 0.3 X10'3 (0-0.9); NEUTROPHILS # (AUTO) 8.8 X10'3 (1.8-7.7); NEUTROPHILS % (AUTO) 92.2 % (42-75); PLATELET COUNT 121 X10'3 (140-440); RED BLOOD COUNT 3.01 X10'6 (4.70-6.10); RED CELL DISTRIBUTION WIDTH 13.8 % (11.5-14.5); WHITE BLOOD COUNT 9.5 X10'3 (4.5-11.0)
[2018-12-15 18:34] LABS: ALBUMIN 3.2 G/DL (3.4-5.0); ANION GAP 8 (8-16); BLOOD UREA NITROGEN 16 MG/DL (7-18); BUN/CREATININE RATIO 13.7 (5.4-32.0); CALCIUM 7.5 MG/DL (8.5-10.1); CHLORIDE 114 MMOL/L (99-107); CREATININE 1.17 MG/DL (0.60-1.10); GLUCOSE 128 MG/DL (70-104); MAGNESIUM 2.4 MG/DL (1.5-2.4); PHOSPHORUS 2.3 MG/DL (2.3-4.5); SODIUM 145 MMOL/L (135-145); TOTAL CARBON DIOXIDE 23.3 MMOL/L (24-32); eGFR 61 ML/MIN
--- NOTE | 2018-12-15 18:59 | NUR ---
Platelets and cryo infused,chest tube output 70mL for 1900. Titrating Dopamine to keep CI greater than 2.0 and MAP greater than 65. Dr. Victor updated,orders received.
[2018-12-15] MEDS: docusate sod 100mg capsule PO SCH (20:00)
[2018-12-15] MEDS: famotidine/PF 10 mg/ml inj IV SCH (20:25)
[2018-12-15] MEDS: mupirocin 2% ointment 22GM NS SCH (20:26)
[2018-12-15] MEDS: vancomycin/NS 1 GM ADD-VANTAGE 250 ML IV SCH (20:52)
[2018-12-15 22:18] LABS: HEMATOCRIT 24.6 % (42.0-52.0); HEMOGLOBIN 8.6 g/dl (14.0-17.9); MEAN CORPUSCULAR HEMOGLOBIN 31.9 PG (27.0-31.0); MEAN CORPUSCULAR HGB CONC 34.8 g/dL (33.0-36.5); MEAN CORPUSCULAR VOLUME 91.7 FL (78-98); MEAN PLATELET VOLUME 8.6 FL (7.4-10.4); PLATELET COUNT 127 X10'3 (140-440); RED BLOOD COUNT 2.69 X10'6 (4.70-6.10); RED CELL DISTRIBUTION WIDTH 13.8 % (11.5-14.5); WHITE BLOOD COUNT 8.6 X10'3 (4.5-11.0)
[2018-12-16] VITALS (24 sets, daily range): BP systolic 112–155; BP diastolic 51–94
--- NOTE | 2018-12-16 00:25 | NUR ---
Weaning from ventilator in progress. Dopamine off. Titrating Nitro to keep SBP less than 140.
[2018-12-16 01:21] LABS: ABG BASE EXCESS -2.2 mmol/L (-2.0-3.0); ABG HCO3 21.6 mmol/L (22.0-26.0); ABG OXYGEN SATURATION 95.6 % (95-98); ABG PCO2 (T) 34.6 mmHg (35.0-45.0); ABG PH (T) 7.418 (7.350-7.450); FCOHb 0.8 % (0.5-1.5); FMetHb 0.2 % (0.3-1.12); FO2Hb 94.6 % (94-100); MINUTE VOLUME 10 L/min; PATIENT TEMPERATURE 38.3; PEEP 5 cm H2O; RESPIRATORY RATE (OBSERVED) 15 b/min; TIDAL VOLUME 969 mL; TOTAL HEMOGLOBIN 8.7 G/dl (14.0-17.9)
--- NOTE | 2018-12-16 01:25 | NUR ---
Extubated patient w/RT to 4LNC without incident.
[2018-12-16] MEDS: morphine 4 MG/ML inj SYRINge IV PRN (01:36)
[2018-12-16 03:18] LABS: BASOPHILS % (AUTO) 0.4 % (0-1); EOSINOPHILS % (AUTO) 0 % (0-6); HEMATOCRIT 23.7 % (42.0-52.0); HEMOGLOBIN 8.3 g/dl (14.0-17.9); LYMPHOCYTES # (AUTO) 0.4 X10'3 (1.1-4.8); LYMPHOCYTES % (AUTO) 3.7 % (21-51); MEAN CORPUSCULAR HGB CONC 35.1 g/dL (33.0-36.5); MEAN CORPUSCULAR VOLUME 91.1 FL (78-98); MEAN PLATELET VOLUME 8.3 FL (7.4-10.4); MONOCYTES # (AUTO) 0.5 X10'3 (0-0.9); MONOCYTES % (AUTO) 4.8 % (2-12); NEUTROPHILS # (AUTO) 9.7 X10'3 (1.8-7.7); NEUTROPHILS % (AUTO) 91.1 % (42-75); PLATELET COUNT 136 X10'3 (140-440); RED CELL DISTRIBUTION WIDTH 13.7 % (11.5-14.5); WHITE BLOOD COUNT 10.6 X10'3 (4.5-11.0)
[2018-12-16 03:46] LABS: PARTIAL THROMBOPLASTIN TIME 31 SECONDS (22-32)
[2018-12-16 03:48] LABS: ALANINE AMINOTRANSFERASE 27 U/L (12-78); ALBUMIN 3.2 G/DL (3.4-5.0); ALBUMIN/GLOBULIN RATIO 1.5 (1.1-1.5); ALKALINE PHOSPHATASE 46 IU/L (46-116); ANION GAP 9 (8-16); ASPARTATE AMINO TRANSFERASE 32 U/L (10-37); BILIRUBIN,TOTAL 0.5 MG/DL (0.1-1.0); BLOOD UREA NITROGEN 19 MG/DL (7-18); BUN/CREATININE RATIO 17.9 (5.4-32.0); CALCIUM 7.8 MG/DL (8.5-10.1); CHLORIDE 112 MMOL/L (99-107); CREATININE 1.06 MG/DL (0.60-1.10); GLUCOSE 125 MG/DL (70-104); MAGNESIUM 2.3 MG/DL (1.5-2.4); PHOSPHORUS 3.3 MG/DL (2.3-4.5); POTASSIUM 4.6 MMOL/L (3.5-5.1); SODIUM 144 MMOL/L (135-145); TOTAL CARBON DIOXIDE 23.3 MMOL/L (24-32); TOTAL PROTEIN 5.4 G/DL (6.4-8.2); eGFR 69 ML/MIN
[2018-12-16] MEDS: magnesium 2GM in 50ml NS 50 ML IV PRN (04:38)
--- NOTE | 2018-12-16 05:34 | NUR ---
Sat patient up at side of the bed with 2 person assist. Tolerated well. Returned to bed without incident.
--- NOTE | 2018-12-16 06:23 | NUR ---
Problems reprioritized. Patient report given, questions answered & plan of care reviewed with Carol JOHNSON.
[2018-12-16] MEDS ORDERED: metoprolol tartrate 12.5mg (1/2 tablet) PO SCH (08:00)
[2018-12-16] MEDS: atorvastatin 10mg tablet PO SCH (08:24)
[2018-12-16] MEDS: gabapentin 300mg capsule PO SCH ×3 (08:24→20:30)
[2018-12-16] MEDS: HYDROcodone/acetaminophen 10/325mg tab PO PRN ×3 (08:24→18:49)
[2018-12-16] MEDS: docusate sod 100mg capsule PO SCH ×2 (08:24→20:31)
[2018-12-16] MEDS: aspirin 325mg tablet, delayed-release (Ecotrin) PO SCH (08:25)
[2018-12-16] MEDS: mupirocin 2% ointment 22GM NS SCH ×2 (08:25→20:40)
[2018-12-16] MEDS: famotidine/PF 10 mg/ml inj IV SCH (08:26)
[2018-12-16] MEDS: ceFAZolin 1GM/D5W- ADD-VANTAGE 50 ML IV SCH ×2 (08:26→17:10)
[2018-12-16] MEDS: vancomycin/NS 1 GM ADD-VANTAGE 250 ML IV SCH ×2 (08:26→20:31)
[2018-12-16] MEDS ORDERED: metoprolol tartrate 12.5mg (1/2 tablet) PO ONE (08:55)
[2018-12-16] MEDS: insulin Lispro (HumaLOG) vial - multi-dose SQ SCH ×3 (09:00→19:06)
[2018-12-16] MEDS ORDERED: glucagon, human recombinant 1mg kit SUBCUT PRN (13:10)
[2018-12-16] MEDS ORDERED: dextrose 50%-water 50ml dispensing syringe IV PRN ×2 (13:10)
[2018-12-16] MEDS ORDERED: dextrose ORAL solution 15 GM/59 ML bottle PO PRN ×2 (13:10)
--- NOTE | 2018-12-16 18:18 | NUR ---
Problems reprioritized. Patient report given to Cici, questions answered & plan of care reviewed with .
--- NOTE | 2018-12-16 18:30 | NUR ---
Patient in room CICU 2007. I have received report from Carol JOHNSON and had the opportunity to ask questions and assume patient care. Pt impulsive, attempting to get out of bed without asking for help, requiring close monitoring.
[2018-12-16] MEDS: famotidine 20mg tablet PO SCH (20:30)
[2018-12-16] MEDS: metoprolol tartrate 50mg tablet PO SCH (20:31)
[2018-12-16] MEDS: insulin glargine (Lantus) pen - multi-dose SQ SCH (22:40)
--- NOTE | 2018-12-16 23:15 | NUR ---
Pt appears to be sleeping,confused at times when awake. Impulsive but follows commands. Sitter at bedside for safety.
[2018-12-17] VITALS (24 sets, daily range): BP systolic 93–159; BP diastolic 47–89
[2018-12-17] MEDS: ceFAZolin 1GM/D5W- ADD-VANTAGE 50 ML IV SCH (01:00)
[2018-12-17] MEDS: HYDROcodone/acetaminophen 10/325mg tab PO PRN ×4 (02:16→20:21)
[2018-12-17 03:02] LABS: BASOPHILS % (AUTO) 0.1 % (0-1); EOSINOPHILS % (AUTO) 0.2 % (0-6); HEMATOCRIT 23.9 % (42.0-52.0); HEMOGLOBIN 8.3 g/dl (14.0-17.9); LYMPHOCYTES # (AUTO) 0.8 X10'3 (1.1-4.8); LYMPHOCYTES % (AUTO) 7.1 % (21-51); MEAN CORPUSCULAR HEMOGLOBIN 32.2 PG (27.0-31.0); MEAN CORPUSCULAR HGB CONC 34.5 g/dL (33.0-36.5); MEAN CORPUSCULAR VOLUME 93.4 FL (78-98); MEAN PLATELET VOLUME 9.2 FL (7.4-10.4); MONOCYTES % (AUTO) 9.3 % (2-12); NEUTROPHILS % (AUTO) 83.3 % (42-75); PLATELET COUNT 131 X10'3 (140-440); RED BLOOD COUNT 2.56 X10'6 (4.70-6.10); RED CELL DISTRIBUTION WIDTH 13.8 % (11.5-14.5); WHITE BLOOD COUNT 10.8 X10'3 (4.5-11.0)
[2018-12-17 03:16] LABS: ALBUMIN 3.2 G/DL (3.4-5.0); ANION GAP 6 (8-16); BLOOD UREA NITROGEN 27 MG/DL (7-18); BUN/CREATININE RATIO 22.3 (5.4-32.0); CALCIUM 7.7 MG/DL (8.5-10.1); CHLORIDE 109 MMOL/L (99-107); CREATININE 1.21 MG/DL (0.60-1.10); GLUCOSE 162 MG/DL (70-104); MAGNESIUM 2.2 MG/DL (1.5-2.4); PHOSPHORUS 2.8 MG/DL (2.3-4.5); POTASSIUM 4.5 MMOL/L (3.5-5.1); SODIUM 142 MMOL/L (135-145); TOTAL CARBON DIOXIDE 26.9 MMOL/L (24-32); eGFR 59 ML/MIN
[2018-12-17] MEDS: magnesium 2GM in 50ml NS 50 ML IV PRN (03:30)
--- NOTE | 2018-12-17 03:38 | NUR ---
Pt converted to a rapid regular heart rate in the 170's, awake and alert, blood pressure 113/77. Vagal maneuvers attempted, rate unchanged. EKG obtained. notified, order received.
[2018-12-17] MEDS ORDERED: metoprolol tartrate 25mg tablet PO ONE (03:40)
[2018-12-17] MEDS: metoprolol tartrate 50mg tablet PO SCH ×2 (03:41→20:19)
[2018-12-17] MEDS ORDERED: amiodarone 150mg/dext, iso-os 100 ML IV ONE (06:20)
--- NOTE | 2018-12-17 06:35 | NUR ---
Problems reprioritized. Patient report given, questions answered & plan of care reviewed with Benny JOHNSON.
[2018-12-17] MEDS: amiodarone/D5 360MG/200ML BAG 200 ML IV SCH ×3 (06:45→18:28)
[2018-12-17] MEDS ORDERED: pantoprazole 40mg Tablet.DR PO SCH (07:30)
[2018-12-17] MEDS: atorvastatin 10mg tablet PO SCH (08:03)
[2018-12-17] MEDS: aspirin 325mg tablet, delayed-release (Ecotrin) PO SCH (08:03)
[2018-12-17] MEDS: gabapentin 300mg capsule PO SCH (08:03)
[2018-12-17] MEDS: docusate sod 100mg capsule PO SCH ×2 (08:04→20:19)
[2018-12-17] MEDS: famotidine 20mg tablet PO SCH ×2 (08:04→20:19)
[2018-12-17] MEDS: mupirocin 2% ointment 22GM NS SCH (08:05)
[2018-12-17] MEDS ORDERED: furosemide 40mg/4ml inj IV ONE (08:15)
[2018-12-17] MEDS: insulin Lispro (HumaLOG) vial - multi-dose SQ SCH ×3 (09:13→20:26)
[2018-12-17] MEDS: sodium chloride 0.45% 1,000 ML IV SCH (12:26)
--- NOTE | 2018-12-17 13:09 | NUR ---
Central line removed, following policy and procedures. Patient tolerated well
--- NOTE | 2018-12-17 18:35 | NUR ---
Patient in room CICU 2007. I have received report from ELIZABETH Zapata and had the opportunity to ask questions and assume patient care.
[2018-12-17] MEDS: lisinopril 5mg tablet PO SCH (21:31)
[2018-12-17] MEDS: insulin glargine (Lantus) pen - multi-dose SQ SCH (21:34)
[2018-12-18] VITALS (11 sets, daily range): BP systolic 107–147; BP diastolic 56–75
[2018-12-18] MEDS: amiodarone/D5 360MG/200ML BAG 200 ML IV SCH (00:53)
[2018-12-18 05:31] LABS: BASOPHILS % (AUTO) 0.4 % (0-1); EOSINOPHILS # (AUTO) 0.2 X10'3 (0-0.9); EOSINOPHILS % (AUTO) 2.3 % (0-6); HEMATOCRIT 23.7 % (42.0-52.0); HEMOGLOBIN 8.1 g/dl (14.0-17.9); LYMPHOCYTES # (AUTO) 0.9 X10'3 (1.1-4.8); LYMPHOCYTES % (AUTO) 9.6 % (21-51); MEAN CORPUSCULAR HEMOGLOBIN 31.9 PG (27.0-31.0); MEAN CORPUSCULAR HGB CONC 34.3 g/dL (33.0-36.5); MEAN CORPUSCULAR VOLUME 92.9 FL (78-98); MEAN PLATELET VOLUME 9.2 FL (7.4-10.4); MONOCYTES # (AUTO) 0.8 X10'3 (0-0.9); NEUTROPHILS # (AUTO) 7.3 X10'3 (1.8-7.7); NEUTROPHILS % (AUTO) 78.7 % (42-75); PLATELET COUNT 130 X10'3 (140-440); RED BLOOD COUNT 2.55 X10'6 (4.70-6.10); RED CELL DISTRIBUTION WIDTH 13.8 % (11.5-14.5); WHITE BLOOD COUNT 9.3 X10'3 (4.5-11.0)
[2018-12-18 05:51] LABS: ALBUMIN 2.9 G/DL (3.4-5.0); ANION GAP 8 (8-16); BLOOD UREA NITROGEN 28 MG/DL (7-18); CALCIUM 7.4 MG/DL (8.5-10.1); CHLORIDE 108 MMOL/L (99-107); CREATININE 1.12 MG/DL (0.60-1.10); GLUCOSE 88 MG/DL (70-104); MAGNESIUM 2.4 MG/DL (1.5-2.4); PHOSPHORUS 2.8 MG/DL (2.3-4.5); POTASSIUM 3.6 MMOL/L (3.5-5.1); SODIUM 142 MMOL/L (135-145); TOTAL CARBON DIOXIDE 26.2 MMOL/L (24-32); eGFR 64 ML/MIN
--- NOTE | 2018-12-18 06:32 | NUR ---
Problems reprioritized. Patient report given, questions answered & plan of care reviewed with ELIZABETH Zapata.
--- NOTE | 2018-12-18 08:30 | NUR ---
Patient still expressing no need to void, but encouraged to try. Patient voided 10ML and says he just has no urge to go. will continue to monitor and will bladder scan PRN
[2018-12-18] MEDS ORDERED: magnesium Cl slow-release 64mg tablet PO PRN (08:40)
[2018-12-18] MEDS ORDERED: magnesium 2GM in 50ml NS 50 ML IV PRN ×2 (08:40→12:00)
[2018-12-18] MEDS ORDERED: potassium CL 10mEq/100ml bag 100 ML IV PRN ×3 (08:40→12:00)
[2018-12-18] MEDS ORDERED: magnesium 4gm in 100ml NS 100 ML IV PRN ×2 (08:40→12:00)
[2018-12-18] MEDS ORDERED: potassium Cl 20 mEq SR tablet PO PRN ×2 (08:40)
[2018-12-18] MEDS: aspirin 81mg tablet.DR PO SCH (09:13)
[2018-12-18] MEDS: docusate sod 100mg capsule PO SCH ×2 (09:13→20:52)
[2018-12-18] MEDS: HYDROcodone/acetaminophen 10/325mg tab PO PRN (09:14)
[2018-12-18] MEDS: metoprolol tartrate 50mg tablet PO SCH ×2 (09:15→20:51)
[2018-12-18] MEDS: famotidine 20mg tablet PO SCH ×2 (09:15→20:51)
[2018-12-18] MEDS ORDERED: glucagon, human recombinant 1mg kit SUBCUT PRN (09:20)
[2018-12-18] MEDS ORDERED: dextrose 50%-water 50ml dispensing syringe IV PRN ×2 (09:20)
[2018-12-18] MEDS ORDERED: dextrose ORAL solution 15 GM/59 ML bottle PO PRN ×2 (09:20)
[2018-12-18] MEDS: insulin Lispro (HumaLOG) vial - multi-dose SQ SCH ×3 (09:24→19:49)
--- NOTE | 2018-12-18 09:52 | NUR ---
Patient in room CICU 2007. I have received report from ELIZABETH Zapata CICU and had the opportunity to ask questions and assume patient care.
[2018-12-18] MEDS ORDERED: tamsulosin 0.4mg capsule PO ONE (10:05)
[2018-12-18] MEDS ORDERED: furosemide 40mg/4ml inj IV ONE (10:05)
--- NOTE | 2018-12-18 10:18 | NUR ---
Initial: Pt presented with c/o CP and admit with NSTEMI. Pt now s/p CABG x 5 and diet has been advanced to no concentrated sweets. Pt documented with 100% PO intake prior to surgery now averaging 75% with range of 50-100% PO intake of meals. Nutrition education s/p CABG not appropriate at this time as pt documented to be A/O x 2. LBM 12/17. Will continue to follow and provide education prior to discharge once pt alert and oriented. Recommendations: 1) Continue with no concentrated sweets diet 2) Monitor need for ONS/additional protein 3) CABG nutrition therapy education prior to discharge 4) Wt per rx Addendum: 12/18/18 at [address] Amended: Links added.
--- NOTE | 2018-12-18 10:34 | NUR ---
Patient arrived to room 315 in stable condition, and ambulated from wheelchair to bed. Alert and oriented times four. Oriented to room and call light. Patient states that he is tired and didnt get much sleep last night due to a code blue in the ICU.
[2018-12-18] MEDS ORDERED: potassium Cl 20mEq/100mL bag 100 ML IV PRN (12:00)
[2018-12-18] MEDS: gabapentin 300mg capsule PO SCH ×2 (12:45→20:51)
[2018-12-18] MEDS: potassium Cl 20 mEq SR tablet PO PRN ×3 (12:46→18:30)
--- NOTE | 2018-12-18 15:47 | NUR ---
F/u: EMR updated and pt documented as A/O x4. Pt seen at bedside provided with written and verbal education for nutrition therapy s/p CABG and RD contact information. Pt agreeable to cottage cheese with lunch and regular yogurt for dinner. Pt reports drinking a Premier Protein QD AUDIO VISUAL TECH and requests chocolate Ensure High Protein with lunches, MD notified. ONS to be sent pending MD verification in [facility]. Pt reports low appetite however states he has been cutting down his PO intake intentionally AUDIO VISUAL TECH. Pt denies any food allergies, difficulty chewing/swallowing, or constipation/diarrhea. Will continue to follow. Recommendations: 1) Continue with no concentrated sweets diet 2) Cottage cheese with lunch; regular yogurt with dinner 3) Chocolate Ensure High Protein with lunch pending MD verification in EMR 4) Wt per rx Addendum: 12/18/18 at [address] Amended: Links added.
--- NOTE | 2018-12-18 15:49 | NUR ---
Problems reprioritized. Patient report given, questions answered & plan of care reviewed with Belgica RN.
--- NOTE | 2018-12-18 18:25 | NUR ---
Problems reprioritized. Patient report given, questions answered & plan of care reviewed with Maryam JOHNSON.
--- NOTE | 2018-12-18 18:30 | NUR ---
Patient in room MED 316. I have received report from ELIZABETH Lindo and had the opportunity to ask questions and assume patient care. Patient was sitting on side of bed, unit Tech their to assist him to his chair for dinner. He is A&Ox3, CHANCE and is appropriate. I will continue to monitor.
[2018-12-18] MEDS: magnesium Cl slow-release 64mg tablet PO SCH (20:50)
[2018-12-18] MEDS: tamsulosin 0.4mg capsule PO SCH (20:50)
[2018-12-18] MEDS: amiodarone 200mg tablet PO SCH (20:50)
[2018-12-18] MEDS: potassium Cl 20 mEq SR tablet PO SCH (20:50)
[2018-12-18] MEDS: lisinopril 5mg tablet PO SCH (20:51)
[2018-12-18] MEDS: insulin glargine (Lantus) pen - multi-dose SQ SCH (21:03)
[2018-12-19 03:00] VITALS: BP 110/57
[2018-12-19 05:59] LABS: BASOPHILS % (AUTO) 0.3 % (0-1); EOSINOPHILS # (AUTO) 0.3 X10'3 (0-0.9); EOSINOPHILS % (AUTO) 3.6 % (0-6); HEMATOCRIT 23.8 % (42.0-52.0); HEMOGLOBIN 8.3 g/dl (14.0-17.9); LYMPHOCYTES # (AUTO) 0.6 X10'3 (1.1-4.8); LYMPHOCYTES % (AUTO) 7.7 % (21-51); MEAN CORPUSCULAR HEMOGLOBIN 32.1 PG (27.0-31.0); MEAN CORPUSCULAR HGB CONC 34.8 g/dL (33.0-36.5); MEAN CORPUSCULAR VOLUME 92.2 FL (78-98); MEAN PLATELET VOLUME 9.3 FL (7.4-10.4); MONOCYTES # (AUTO) 0.7 X10'3 (0-0.9); NEUTROPHILS # (AUTO) 6.8 X10'3 (1.8-7.7); NEUTROPHILS % (AUTO) 80.4 % (42-75); PLATELET COUNT 149 X10'3 (140-440); RED BLOOD COUNT 2.58 X10'6 (4.70-6.10); RED CELL DISTRIBUTION WIDTH 13.6 % (11.5-14.5); WHITE BLOOD COUNT 8.4 X10'3 (4.5-11.0)
[2018-12-19 06:00] VITALS: BP 122/65
[2018-12-19 06:13] LABS: ALBUMIN 2.7 G/DL (3.4-5.0); ANION GAP 10 (8-16); BLOOD UREA NITROGEN 21 MG/DL (7-18); BUN/CREATININE RATIO 23.3 (5.4-32.0); CALCIUM 7.8 MG/DL (8.5-10.1); CHLORIDE 107 MMOL/L (99-107); GLUCOSE 72 MG/DL (70-104); MAGNESIUM 2.2 MG/DL (1.5-2.4); POTASSIUM 3.8 MMOL/L (3.5-5.1); SODIUM 141 MMOL/L (135-145); TOTAL CARBON DIOXIDE 24.5 MMOL/L (24-32); eGFR 83 ML/MIN
--- NOTE | 2018-12-19 06:20 | NUR ---
Problems reprioritized. Patient report given, questions answered & plan of care reviewed with Leonora/ShannanRN.
[2018-12-19] MEDS: amiodarone 200mg tablet PO SCH ×3 (07:48→20:51)
[2018-12-19] MEDS: famotidine 20mg tablet PO SCH ×2 (07:48→19:34)
[2018-12-19] MEDS: aspirin 81mg tablet.DR PO SCH (07:48)
[2018-12-19] MEDS: magnesium Cl slow-release 64mg tablet PO SCH ×2 (07:48→19:33)
[2018-12-19] MEDS: docusate sod 100mg capsule PO SCH ×2 (07:48→19:33)
[2018-12-19] MEDS: gabapentin 300mg capsule PO SCH ×3 (07:49→20:52)
[2018-12-19] MEDS: potassium Cl 20 mEq SR tablet PO SCH ×2 (07:53→19:33)
[2018-12-19] MEDS: metoprolol tartrate 50mg tablet PO SCH ×2 (07:57→19:35)
[2018-12-19] MEDS: potassium Cl 20 mEq SR tablet PO PRN ×2 (07:57→14:18)
[2018-12-19] MEDS: HYDROcodone/acetaminophen 10/325mg tab PO PRN ×2 (08:00→18:56)
[2018-12-19] MEDS ORDERED: atorvastatin 10mg tablet PO SCH (08:00)
[2018-12-19] MEDS ORDERED: K and/or MAG REPLACEMENT MC SCH (08:00)
[2018-12-19 11:00] VITALS: BP 108/67
[2018-12-19] MEDS: lactose-reduced food (Ensure High Protein) 237ml bottle PO SCH (12:30)
[2018-12-19] MEDS: insulin Lispro (HumaLOG) vial - multi-dose SQ SCH ×2 (14:18→19:05)
[2018-12-19 15:00] VITALS: BP 152/90
--- NOTE | 2018-12-19 18:00 | NUR ---
Patient in room MED 316. I have received report from Leonora JOHNSON and had the opportunity to ask questions and assume patient care.
[2018-12-19] MEDS: atorvastatin 20mg tablet PO SCH (20:52)
[2018-12-19] MEDS: lisinopril 5mg tablet PO SCH (20:56)
[2018-12-19] MEDS: tamsulosin 0.4mg capsule PO SCH (20:56)
[2018-12-19] MEDS: insulin glargine (Lantus) pen - multi-dose SQ SCH (21:00)
[2018-12-19 22:00] VITALS: BP 149/73
[2018-12-20] VITALS (8 sets, daily range): BP systolic 110–150; BP diastolic 58–78
[2018-12-20] MEDS: HYDROcodone/acetaminophen 10/325mg tab PO PRN ×4 (02:38→20:57)
[2018-12-20 05:24] LABS: BASOPHILS % (AUTO) 0.3 % (0-1); EOSINOPHILS # (AUTO) 0.4 X10'3 (0-0.9); EOSINOPHILS % (AUTO) 4.5 % (0-6); HEMATOCRIT 24.6 % (42.0-52.0); HEMOGLOBIN 8.4 g/dl (14.0-17.9); LYMPHOCYTES # (AUTO) 0.7 X10'3 (1.1-4.8); LYMPHOCYTES % (AUTO) 7.5 % (21-51); MEAN CORPUSCULAR HEMOGLOBIN 31.9 PG (27.0-31.0); MEAN CORPUSCULAR HGB CONC 34.4 g/dL (33.0-36.5); MEAN CORPUSCULAR VOLUME 92.8 FL (78-98); MONOCYTES # (AUTO) 0.9 X10'3 (0-0.9); MONOCYTES % (AUTO) 9.7 % (2-12); NEUTROPHILS # (AUTO) 7.1 X10'3 (1.8-7.7); PLATELET COUNT 207 X10'3 (140-440); RED BLOOD COUNT 2.65 X10'6 (4.70-6.10); RED CELL DISTRIBUTION WIDTH 13.7 % (11.5-14.5); WHITE BLOOD COUNT 9.1 X10'3 (4.5-11.0)
[2018-12-20 05:26] LABS: ALBUMIN 2.6 G/DL (3.4-5.0); ANION GAP 7 (8-16); BLOOD UREA NITROGEN 15 MG/DL (7-18); CALCIUM 7.5 MG/DL (8.5-10.1); CHLORIDE 108 MMOL/L (99-107); CREATININE 0.88 MG/DL (0.60-1.10); GLUCOSE 92 MG/DL (70-104); MAGNESIUM 2.1 MG/DL (1.5-2.4); POTASSIUM 4.2 MMOL/L (3.5-5.1); SODIUM 140 MMOL/L (135-145); TOTAL CARBON DIOXIDE 24.8 MMOL/L (24-32); eGFR 85 ML/MIN
--- NOTE | 2018-12-20 06:00 | NUR ---
Patient in room MED 316. I have received report from Chiara JOHNSON and had the opportunity to ask questions and assume patient care.
--- NOTE | 2018-12-20 06:07 | NUR ---
Problems reprioritized. Patient report given, questions answered & plan of care reviewed with Aaron JOHNSON and Olga RN .
[2018-12-20] MEDS ORDERED: amiodarone 150mg/dext, iso-os 100 ML IV ONE (06:30)
[2018-12-20] MEDS: amiodarone/D5 360MG/200ML BAG 200 ML IV SCH ×3 (06:50→13:17)
[2018-12-20] MEDS: potassium Cl 20 mEq SR tablet PO SCH ×2 (07:05→20:48)
[2018-12-20] MEDS: aspirin 81mg tablet.DR PO SCH (07:05)
[2018-12-20] MEDS: magnesium Cl slow-release 64mg tablet PO SCH ×2 (07:05→20:00)
[2018-12-20] MEDS: famotidine 20mg tablet PO SCH ×2 (07:05→20:47)
[2018-12-20] MEDS: metoprolol tartrate 50mg tablet PO SCH ×2 (07:05→20:48)
[2018-12-20] MEDS: docusate sod 100mg capsule PO SCH ×2 (07:05→20:48)
[2018-12-20] MEDS: gabapentin 300mg capsule PO SCH ×3 (07:05→20:47)
[2018-12-20] MEDS ORDERED: HYDR-3972 PO (07:11)
[2018-12-20] MEDS ORDERED: tamsulosin capsule PO (07:11)
--- NOTE | 2018-12-20 08:00 | NUR ---
The pt. went into A-Fib w/ RVR at around 0620 this morning. Raffi was walking up as this happened. We assessed the pt. and then started him on the Amio protocol and gave 2g of Mag. The pt. converted back to sinus at around 0630s. The pt. never complained of anything but he could feel his heart beat every once in a while.
[2018-12-20] MEDS: insulin Lispro (HumaLOG) vial - multi-dose SQ SCH ×3 (08:20→19:16)
[2018-12-20] MEDS: lactose-reduced food (Ensure High Protein) 237ml bottle PO SCH (13:19)
--- NOTE | 2018-12-20 18:00 | NUR ---
Patient in room MED 316. I have received report from ELIZABETH Walker, and had the opportunity to ask questions and assume patient care.
--- NOTE | 2018-12-20 18:31 | NUR ---
Problems reprioritized. Patient report given, questions answered & plan of care reviewed with Mariah JOHNSON.
[2018-12-20] MEDS: atorvastatin 20mg tablet PO SCH (20:47)
[2018-12-20] MEDS: lisinopril 5mg tablet PO SCH (20:49)
[2018-12-20] MEDS: tamsulosin 0.4mg capsule PO SCH (20:49)
[2018-12-20] MEDS: insulin glargine (Lantus) pen - multi-dose SQ SCH (21:00)
--- NOTE | 2018-12-20 21:14 | NUR ---
patient only received 2 tabs only, it was scanned accidently for an extra tab.
[2018-12-21] VITALS: BP 112/65
[2018-12-21] MEDS: amiodarone/D5 360MG/200ML BAG 200 ML IV SCH (01:39)
--- NOTE | 2018-12-21 01:59 | NUR ---
PAULINA AMIO GTT PER MD MORA DUE TO INCREASINGLY PROLONGED QT INTERVAL.
--- NOTE | 2018-12-21 01:59 | NUR ---
The heparin drip stopped as per Dr. Piero forman due to QT prolongation. Addendum: 12/21/18 at 0340 by Christ Boswell RN Correction: The amiodarone drip was stopped per Dr. Piero forman because of QT prolongation.
[2018-12-21 02:00] VITALS: BP 107/71
--- NOTE | 2018-12-21 02:00 | NUR ---
Dr. Victor was called and informed that the patient has a prolonged QT interval and increased HR. DR. Victor ordered to stopped the amiodarone and he is aware of the increased heart rate. No other orders were given.
--- NOTE | 2018-12-21 03:39 | NUR ---
Spoke to Dr. Victor regarding patient going back into Afib with an increasing heart rate and the Amio gtt being DCd. Per MD it is okay to leave the gtt off and continue with PO management. Will continue to monitor closely.
--- NOTE | 2018-12-21 04:04 | NUR ---
Paged PICC line RN since pt has been c/o left neck pain. Pt in 314 at [facility] JOHNSON R, has been c/o left neck pain where the IJ is. Can you please get an ultrasound and r/o displacement?
[2018-12-21 05:26] LABS: BASOPHILS # (AUTO) 0.1 X10'3 (0-0.2); BASOPHILS % (AUTO) 0.6 % (0-1); EOSINOPHILS # (AUTO) 0.4 X10'3 (0-0.9); EOSINOPHILS % (AUTO) 4.1 % (0-6); HEMATOCRIT 26.2 % (42.0-52.0); HEMOGLOBIN 9.1 g/dl (14.0-17.9); LYMPHOCYTES # (AUTO) 0.9 X10'3 (1.1-4.8); LYMPHOCYTES % (AUTO) 8.3 % (21-51); MEAN CORPUSCULAR HEMOGLOBIN 32.4 PG (27.0-31.0); MEAN CORPUSCULAR HGB CONC 34.7 g/dL (33.0-36.5); MEAN CORPUSCULAR VOLUME 93.2 FL (78-98); MEAN PLATELET VOLUME 7.9 FL (7.4-10.4); MONOCYTES # (AUTO) 0.9 X10'3 (0-0.9); MONOCYTES % (AUTO) 9.2 % (2-12); NEUTROPHILS % (AUTO) 77.8 % (42-75); PLATELET COUNT 227 X10'3 (140-440); RED BLOOD COUNT 2.81 X10'6 (4.70-6.10); WHITE BLOOD COUNT 10.3 X10'3 (4.5-11.0)
[2018-12-21 05:31] LABS: ALBUMIN 2.6 G/DL (3.4-5.0); ANION GAP 6 (8-16); CALCIUM 7.8 MG/DL (8.5-10.1); CHLORIDE 107 MMOL/L (99-107); CREATININE 1.05 MG/DL (0.60-1.10); GLUCOSE 90 MG/DL (70-104); MAGNESIUM 2.2 MG/DL (1.5-2.4); POTASSIUM 4.4 MMOL/L (3.5-5.1); SODIUM 140 MMOL/L (135-145); TOTAL CARBON DIOXIDE 26.8 MMOL/L (24-32); eGFR 69 ML/MIN
[2018-12-21 05:54] LABS: BLOOD UREA NITROGEN 14 MG/DL (7-18); BUN/CREATININE RATIO 13.3 (5.4-32.0)
[2018-12-21 06:00] VITALS: BP 125/82
--- NOTE | 2018-12-21 06:00 | NUR ---
Problems reprioritized. Patient report given, questions answered & plan of care reviewed with ELIZABETH Lea.
--- NOTE | 2018-12-21 06:00 | NUR ---
Reviewed and agreed with Isidro Polo RN's charting
--- NOTE | 2018-12-21 06:30 | NUR ---
Patient in room MED 316. I have received report from ELIZABETH Polo and ELIZABETH Lemus and had the opportunity to ask questions and assume patient care.
[2018-12-21] MEDS: magnesium Cl slow-release 64mg tablet PO SCH (07:16)
[2018-12-21] MEDS: gabapentin 300mg capsule PO SCH ×2 (07:17→14:08)
[2018-12-21] MEDS: aspirin 81mg tablet.DR PO SCH (07:17)
[2018-12-21] MEDS: famotidine 20mg tablet PO SCH (07:18)
[2018-12-21] MEDS: potassium Cl 20 mEq SR tablet PO SCH (07:18)
[2018-12-21] MEDS: docusate sod 100mg capsule PO SCH (07:19)
[2018-12-21] MEDS: HYDROcodone/acetaminophen 10/325mg tab PO PRN ×2 (07:19→14:08)
[2018-12-21] MEDS: metoprolol tartrate 50mg tablet PO SCH (07:20)
[2018-12-21] MEDS ORDERED: amiodarone 200mg tablet PO SCH ×2 (08:00→13:00)
[2018-12-21] MEDS ORDERED: metoprolol tartrate 25mg tablet PO SCH (08:00)
[2018-12-21] MEDS ORDERED: metoprolol tartrate 25mg tablet PO ONE (08:40)
[2018-12-21] MEDS: calcium carbonate 500mg chew tablet PO SCH ×2 (08:50→14:09)
[2018-12-21] MEDS: insulin Lispro (HumaLOG) vial - multi-dose SQ SCH ×2 (08:54→14:12)
[2018-12-21 11:00] VITALS: BP 119/72
[2018-12-21] MEDS: lactose-reduced food (Ensure High Protein) 237ml bottle PO SCH (12:30)
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
[2018-12-21 15:00] VITALS: BP 155/71
[2018-12-21] MEDS ORDERED: ATOR20TA66 PO (15:15)
[2018-12-21] MEDS ORDERED: APIX2.5T PO (15:15)
[2018-12-21] MEDS ORDERED: METO25TA6 PO (15:15)
[2018-12-21] MEDS ORDERED: AMIO200T61 PO (15:15)
--- NOTE | 2018-12-21 17:17 | NUR ---
[facility] [employer] arrived late to pick-up pt. they were scheduled to come at 1545 and showed up at 1710. pt. was wheeled out with their personnel. pt. IV's were d/c and intact. personal belongings were accounted for by pt. and taken. report was given to RN at [facility].
[2018-12-21] MEDS ORDERED: apixaban 2.5mg tablet PO SCH (20:00)
== END 2018-12-21 17:10 | DRG 233 ==
LOC: ER 09:23 → MED 3N 12:45 → CMPBEDREQ 19:45 → CICU 2S 12-15 12:29 → MED 3N 12-18 10:05
PROVIDERS: ADMIT Family Medicine; ATTEND Family Medicine
PROC: 4A023N7 Measurement of Cardiac Sampling and Pressure, Left Heart, Percutaneous Approach (ICD-10-PCS; principal; 2018-12-13)
PROC: B2111ZZ Fluoroscopy of Multiple Coronary Arteries using Low Osmolar Contrast (ICD-10-PCS; 2018-12-13)
PROC: B3101ZZ Fluoroscopy of Thoracic Aorta using Low Osmolar Contrast (ICD-10-PCS; 2018-12-13)
PROC: B2151ZZ Fluoroscopy of Left Heart using Low Osmolar Contrast (ICD-10-PCS; 2018-12-13)
PROC: B31N1ZZ Fluoroscopy of Other Upper Arteries using Low Osmolar Contrast (ICD-10-PCS; 2018-12-13)
PROC: 05HM33Z Insertion of Infusion Device into Right Internal Jugular Vein, Percutaneous Approach (ICD-10-PCS; 2018-12-13)
PROC: 4A133B3 Monitoring of Arterial Pressure, Pulmonary, Percutaneous Approach (ICD-10-PCS; 2018-12-13)
PROC: 02HP32Z Insertion of Monitoring Device into Pulmonary Trunk, Percutaneous Approach (ICD-10-PCS; 2018-12-13)
PROC: B41F1ZZ Fluoroscopy of Right Lower Extremity Arteries using Low Osmolar Contrast (ICD-10-PCS; 2018-12-13)
PROC: B3111ZZ Fluoroscopy of Right Brachiocephalic-Subclavian Artery using Low Osmolar Contrast (ICD-10-PCS; 2018-12-13)
PROC: B3121ZZ Fluoroscopy of Left Subclavian Artery using Low Osmolar Contrast (ICD-10-PCS; 2018-12-13)
PROC: 02100Z9 Bypass Coronary Artery, One Artery from Left Internal Mammary, Open Approach (ICD-10-PCS; 2018-12-15)
PROC: 021309W Bypass Coronary Artery, Four or More Arteries from Aorta with Autologous Venous Tissue, Open Approach (ICD-10-PCS; 2018-12-15)
PROC: 06BQ4ZZ Excision of Left Saphenous Vein, Percutaneous Endoscopic Approach (ICD-10-PCS; 2018-12-15)
PROC: 30233M1 Transfusion of Nonautologous Plasma Cryoprecipitate into Peripheral Vein, Percutaneous Approach (ICD-10-PCS; 2018-12-15)
PROC: 30233R1 Transfusion of Nonautologous Platelets into Peripheral Vein, Percutaneous Approach (ICD-10-PCS; 2018-12-15)
PROC: 5A1221Z Performance of Cardiac Output, Continuous (ICD-10-PCS; 2018-12-15)
PROC: B24BZZ4 Ultrasonography of Heart with Aorta, Transesophageal (ICD-10-PCS; 2018-12-15)
DX: I21.4 Non-ST elevation (NSTEMI) myocardial infarction (principal); N17.0 Acute kidney failure with tubular necrosis; I50.31 Acute diastolic (congestive) heart failure; F11.20 Opioid dependence, uncomplicated; I47.1 Supraventricular tachycardia; D62 Acute posthemorrhagic anemia; E11.9 Type 2 diabetes mellitus without complications; E66.9 Obesity, unspecified; I25.110 Atherosclerotic heart disease of native coronary artery with unstable angina pectoris; I11.0 Hypertensive heart disease with heart failure; I48.0 Paroxysmal atrial fibrillation; G89.4 Chronic pain syndrome; E87.6 Hypokalemia; E83.51 Hypocalcemia; K21.9 Gastro-esophageal reflux disease without esophagitis; M19.90 Unspecified osteoarthritis, unspecified site; Z79.01 Long term (current) use of anticoagulants; Z68.39 Body mass index [BMI] 39.0-39.9, adult; Z79.899 Other long term (current) drug therapy; Z82.49 Family history of ischemic heart disease and other diseases of the circulatory system; Z79.82 Long term (current) use of aspirin; Z90.49 Acquired absence of other specified parts of digestive tract
CPT/HCPCS: 0232T; 93312; 93325; 93459; 93567; 96374; 99285; 36415; 36600; 71045; 71046; 76937; 80048; 80053; 82330; 82435; 82803; 82947; 82948; 83036; 83735; 84100; 84132; 84295; 84484; 85018; 85025; 85027; 85347; 85384; 85610; 85730; 86885; 86900; 86901; 86920; 87081; 93005; 93880; 93971; 94002; 94010; 94760; 97110; 97116; 97161; 97164; 97530; 99152; 99153; A4338; A4618; A4620; A5120; A6258; A6402; A6449; A7000; A7048; C1713; C1751; C1760; C1769; G0378; J0282; J0360; J0690; J0780; J1265; J1644; J1815; J1940; J2001; J2060; J2150; J2250; J2270; J2370; J2440; J2704; J2720; J2795; J2930; J3010; J3370; J3475; J3480; J3490; J7030; J7040; J7050; J7120; P9012; P9035; P9045; P9047; Q0163; Q9967

== ENCOUNTER 2019-01-04 13:27 | Inpatient (IN) | payer MEDICARE, OTHER ==
[~2019-01-04] VITALS: Ht 180.3 cm; Wt 120.0 kg
[~2019-01-04 13:27] MED LIST: AMIO200T61 PO; APIX2.5T PO; ASPI-1265 PO; ATOR20TA66 PO; BETA1TAB20 PO; DICL100G15 TOP; GABA-532 PO; HYDR-3972 PO; HYDR25TA4 PO; LIDO700A32 TOP; METH500T6 PO; METO25TA6 PO; MULT1TAB74 PO; OMEP20CA11 PO; tamsulosin capsule PO
[2019-01-04 14:28] LABS: BASOPHILS % (AUTO) 0.4 % (0-1); EOSINOPHILS # (AUTO) 0.2 X10'3 (0-0.9); EOSINOPHILS % (AUTO) 1.8 % (0-6); HEMATOCRIT 28.2 % (42.0-52.0); HEMOGLOBIN 9.5 g/dl (14.0-17.9); LYMPHOCYTES # (AUTO) 0.6 X10'3 (1.1-4.8); LYMPHOCYTES % (AUTO) 6.6 % (21-51); MEAN CORPUSCULAR HEMOGLOBIN 30.1 PG (27.0-31.0); MEAN CORPUSCULAR HGB CONC 33.6 g/dL (33.0-36.5); MEAN CORPUSCULAR VOLUME 89.8 FL (78-98); MEAN PLATELET VOLUME 6.9 FL (7.4-10.4); MONOCYTES # (AUTO) 0.8 X10'3 (0-0.9); MONOCYTES % (AUTO) 8.9 % (2-12); NEUTROPHILS # (AUTO) 7.4 X10'3 (1.8-7.7); NEUTROPHILS % (AUTO) 82.3 % (42-75); PLATELET COUNT 380 X10'3 (140-440); RED BLOOD COUNT 3.15 X10'6 (4.70-6.10); RED CELL DISTRIBUTION WIDTH 14.2 % (11.5-14.5); WHITE BLOOD COUNT 8.9 X10'3 (4.5-11.0)
[2019-01-04 14:44] LABS: ALANINE AMINOTRANSFERASE 12 U/L (12-78); ALBUMIN 2.7 G/DL (3.4-5.0); ALBUMIN/GLOBULIN RATIO 0.7 (1.1-1.5); ALKALINE PHOSPHATASE 92 IU/L (46-116); ANION GAP 9 (8-16); ASPARTATE AMINO TRANSFERASE 6 U/L (10-37); BILIRUBIN,TOTAL 0.5 MG/DL (0.1-1.0); BLOOD UREA NITROGEN 13 MG/DL (7-18); BUN/CREATININE RATIO 10.8 (5.4-32.0); CALCIUM 7.7 MG/DL (8.5-10.1); CHLORIDE 101 MMOL/L (99-107); GLUCOSE 221 MG/DL (70-104); SODIUM 138 MMOL/L (135-145); TOTAL CARBON DIOXIDE 28.1 MMOL/L (24-32); TOTAL PROTEIN 6.7 G/DL (6.4-8.2); eGFR 60 ML/MIN
[2019-01-04 14:52] LABS: PARTIAL THROMBOPLASTIN TIME 44 SECONDS (22-32)
[2019-01-04 15:54] VITALS: BP 149/79
[2019-01-04 16:15] VITALS: BP 147/85
--- NOTE | 2019-01-04 16:27 | NUR ---
PATIENT BACK FROM IR WITH A CHEST TUBE, VSS
[2019-01-04] MEDS ORDERED: morphine 2 MG/ML inj. syringe IV PRN ×3 (16:35→17:10)
[2019-01-04] MEDS ORDERED: morphine 4 MG/ML inj SYRINge IV ONE (16:35)
--- NOTE | 2019-01-04 17:03 | NUR ---
PATIENT HAD 2 LITERS OUT CHEST DRAIN, NEW SYSTEM ATTACHED
[2019-01-04] MEDS ORDERED: ondansetron/PF 4mg/2ml inj IV PRN (17:10)
[2019-01-04] MEDS ORDERED: potassium CL 10mEq/100ml bag 100 ML IV PRN ×2 (17:10)
[2019-01-04] MEDS ORDERED: magnesium Cl slow-release 64mg tablet PO PRN (17:10)
[2019-01-04] MEDS ORDERED: potassium Cl 20 mEq SR tablet PO PRN ×2 (17:10)
[2019-01-04] MEDS ORDERED: magnesium 4gm in 100ml NS 100 ML IV PRN (17:10)
[2019-01-04] MEDS ORDERED: magnesium 2GM in 50ml NS 50 ML IV PRN (17:10)
[2019-01-04] MEDS ORDERED: FURO-149 PO (17:22)
[2019-01-04] MEDS ORDERED: HYDR-4353 PO ×2 (17:25→21:58)
[2019-01-04] MEDS ORDERED: RIVA15TA PO (17:27)
[2019-01-04] MEDS ORDERED: CALC500T11 PO (17:28)
[2019-01-04] MEDS ORDERED: DOCU-20 PO (17:29)
[2019-01-04 18:00] VITALS: BP 131/68
--- NOTE | 2019-01-04 18:00 | NUR ---
Patient arrived to the ACCE unit by parker. Ayla from the ER brought patient up. Patient has chest tube with Atrium attached, to water seal. Patient is alert and oriented x4, Patient was able to go from the rney to the hospital bed independently while staff protected chest tube. Patient had personal belongings in plastic bag. Assessment completed and assumed care of patient. Gave report to ELIZABETH Larios (orienteer).
--- NOTE | 2019-01-04 19:30 | NUR ---
Called Dr. Foster to check on Med reconciliation. Dr. Foster stated that she would take care of it soon.
--- NOTE | 2019-01-04 20:36 | NUR ---
Patient came up from ER to room 307. Noted total chest tube output of 470.
--- NOTE | 2019-01-04 20:36 | NUR ---
Patient in room MED 307. I have received report from ELIZABETH Espinoza and had the opportunity to ask questions and assume patient care.
--- NOTE | 2019-01-04 21:13 | NUR ---
PAGER ID: [phone] MESSAGE: Dr. Foster-patient rom [phone] on ACCE unit, Reinaldo Mccormick following up on Medication Reconciliation for this patient. This is not completed yet. Patient has night time meds that he is requesting. Thank you for your help with this. ELIZABETH Lei [facility]
--- NOTE | 2019-01-04 21:30 | NUR ---
Dr. Foster called back to ACCE unit to state that she was not able to complete the Med Rec due to problem with the system. She gave order over the telephone for patient's medication. Faxed this to pharmacy and place paper med rec in chart.
[2019-01-04] MEDS ORDERED: AMIO200T61 PO (21:58)
[2019-01-04] MEDS ORDERED: ATOR40TA71 PO (21:59)
[2019-01-04] MEDS ORDERED: METO25TA6 PO (21:59)
[2019-01-04 22:00] VITALS: BP 147/74
[2019-01-04] MEDS: metoprolol tartrate 25mg tablet PO SCH (22:27)
[2019-01-04] MEDS: gabapentin 300mg capsule PO SCH (22:27)
[2019-01-04] MEDS: amiodarone 200mg tablet PO SCH (22:27)
[2019-01-04] MEDS: HYDROcodone/acetaminophen 10/325mg tab PO PRN (22:28)
[2019-01-04] MEDS: docusate sod 100mg capsule PO SCH (22:30)
[2019-01-05 02:56] LABS: BASOPHILS # (AUTO) 0.1 X10'3 (0-0.2); EOSINOPHILS # (AUTO) 0.2 X10'3 (0-0.9); EOSINOPHILS % (AUTO) 1.7 % (0-6); HEMATOCRIT 26.7 % (42.0-52.0); HEMOGLOBIN 8.8 g/dl (14.0-17.9); LYMPHOCYTES # (AUTO) 1.1 X10'3 (1.1-4.8); LYMPHOCYTES % (AUTO) 11.5 % (21-51); MEAN CORPUSCULAR HEMOGLOBIN 29.5 PG (27.0-31.0); MEAN CORPUSCULAR VOLUME 89.6 FL (78-98); MEAN PLATELET VOLUME 7.2 FL (7.4-10.4); MONOCYTES # (AUTO) 0.7 X10'3 (0-0.9); MONOCYTES % (AUTO) 7.3 % (2-12); NEUTROPHILS # (AUTO) 7.2 X10'3 (1.8-7.7); NEUTROPHILS % (AUTO) 78.5 % (42-75); PLATELET COUNT 359 X10'3 (140-440); RED BLOOD COUNT 2.98 X10'6 (4.70-6.10); WHITE BLOOD COUNT 9.2 X10'3 (4.5-11.0)
[2019-01-05 03:15] LABS: ALBUMIN 2.2 G/DL (3.4-5.0); ANION GAP 5 (8-16); BLOOD UREA NITROGEN 15 MG/DL (7-18); BUN/CREATININE RATIO 12.9 (5.4-32.0); CALCIUM 7.6 MG/DL (8.5-10.1); CHLORIDE 104 MMOL/L (99-107); CREATININE 1.16 MG/DL (0.60-1.10); GLUCOSE 193 MG/DL (70-104); MAGNESIUM 2.1 MG/DL (1.5-2.4); POTASSIUM 3.9 MMOL/L (3.5-5.1); SODIUM 138 MMOL/L (135-145); TOTAL CARBON DIOXIDE 28.7 MMOL/L (24-32); eGFR 62 ML/MIN
--- NOTE | 2019-01-05 04:20 | NUR ---
Patient sat up at bedside to use urinal. Chest tube output of 120mL.
[2019-01-05 06:30] VITALS: BP 118/65
--- NOTE | 2019-01-05 06:42 | NUR ---
Problems reprioritized. Patient report given, questions answered & plan of care reviewed with Shannan RN.
--- NOTE | 2019-01-05 06:43 | NUR ---
Orienteer documentation: I have reviewed and agree with all interventions, assessments performed and documented by ELIZABETH Larios. Orienteer Medication Administration: For this medication-pass time frame, all medication were reviewed, dispensed, administered and documented per hospital policy by ELIZABETH Larios.
[2019-01-05] MEDS: HYDROcodone/acetaminophen 10/325mg tab PO PRN ×3 (07:32→18:56)
[2019-01-05] MEDS: pantoprazole 40mg Tablet.DR PO SCH (07:32)
--- NOTE | 2019-01-05 07:38 | NUR ---
PAGER ID: [phone] MESSAGE: [phone]- FIORELLA BURGESS. A1C 6.5. GLUCOSE 193 ON LABS. CAN WE ORDER ACCUCHECKS AND HYPERGLYCEMIC PROTOCOL PLEASE? CARB CONTROLLED DIET? THANKS. RADHA CHILD LIFE THERAPIST EXT 1246
[2019-01-05] MEDS: beta-carotene(A) w/C & E + minerals tab PO SCH ×2 (08:00→19:40)
[2019-01-05] MEDS ORDERED: calcium carbonate 500mg chew tablet PO SCH (08:00)
[2019-01-05] MEDS: amiodarone 200mg tablet PO SCH ×3 (08:09→21:19)
[2019-01-05] MEDS: metoprolol tartrate 25mg tablet PO SCH ×2 (08:09→19:40)
[2019-01-05] MEDS: docusate sod 100mg capsule PO SCH ×2 (08:11→19:40)
[2019-01-05] MEDS: furosemide 40mg/4ml inj IV SCH (08:14)
[2019-01-05] MEDS: gabapentin 300mg capsule PO SCH ×3 (08:22→21:20)
[2019-01-05] MEDS: multivitamins, therapeutics tablet PO SCH (08:22)
[2019-01-05] MEDS: K and/or MAG REPLACEMENT MC SCH (08:58)
[2019-01-05] MEDS ORDERED: dextrose 50%-water 50ml dispensing syringe IV PRN ×2 (09:05)
[2019-01-05] MEDS ORDERED: MESSAGE TO PHARMACY PO ONE (09:05)
[2019-01-05] MEDS ORDERED: dextrose ORAL solution 15 GM/59 ML bottle PO PRN ×2 (09:05)
[2019-01-05] MEDS ORDERED: glucagon, human recombinant 1mg kit SUBCUT PRN (09:05)
[2019-01-05 11:00] VITALS: BP 119/64
[2019-01-05] MEDS: cyclobenzaprine 10mg tablet PO PRN ×2 (11:15→19:44)
[2019-01-05] MEDS: calcium carbonate 500mg chew tablet PO SCH ×2 (12:50→21:19)
[2019-01-05 12:51] VITALS: BP 102/56
--- NOTE | 2019-01-05 14:00 | NUR ---
PATIENT'S BS 241, STARTED ON LEVEL TWO. PATIENT REFUSED LUNCH THAT WAS SERVED; THEREFORE, REORDERED CHIEF SALAD PER PATIENT'S REQUEST. BS AND CARBOHYDRATES COVERED PER PROTOCOL. ASSISTED BACK TO BED. MEDICATED WITH TW0 [id number] PO FOR COMPLAINT OF PAIN AT CHEST TUBE SITE. HOB UP , CALL LIGHT IN REACH. Addendum: 01/05/19 at 1518 by Jolanta Scanlon RN Amended: Links added.
[2019-01-05] MEDS: insulin Lispro (HumaLOG) vial - multi-dose SQ SCH ×2 (14:01→19:24)
[2019-01-05 15:00] VITALS: BP 104/53
[2019-01-05 18:00] VITALS: BP 126/69
--- NOTE | 2019-01-05 18:25 | NUR ---
Patient in room MED 307. I have received report from ELIZABETH Campbell and had the opportunity to ask questions and assume patient care.
--- NOTE | 2019-01-05 18:30 | NUR ---
Marked chest tube collection device for start of shift. 1520mL total in device. Will continue to monitor. Addendum: 01/05/19 at 2213 by Harriet Julio RN Amended: Links added.
[2019-01-05] MEDS ORDERED: atorvastatin 20mg tablet PO SCH (21:00)
[2019-01-05] MEDS ORDERED: insulin glargine (Lantus) pen - multi-dose SQ SCH (21:00)
[2019-01-05 22:00] VITALS: BP 111/63
[2019-01-06 02:00] VITALS: BP 110/60
[2019-01-06] MEDS: HYDROcodone/acetaminophen 10/325mg tab PO PRN ×2 (02:21→08:13)
[2019-01-06] MEDS: cyclobenzaprine 10mg tablet PO PRN (03:56)
--- NOTE | 2019-01-06 04:35 | NUR ---
Patients IV came out while he was sleeping. Tip was intact. New IV was placed on the second attempt. Patient tolerated well.
[2019-01-06 04:53] LABS: BASOPHILS # (AUTO) 0.1 X10'3 (0-0.2); BASOPHILS % (AUTO) 1.3 % (0-1); EOSINOPHILS # (AUTO) 0.6 X10'3 (0-0.9); EOSINOPHILS % (AUTO) 7.8 % (0-6); HEMOGLOBIN 9.7 g/dl (14.0-17.9); LYMPHOCYTES # (AUTO) 1.3 X10'3 (1.1-4.8); MEAN CORPUSCULAR HEMOGLOBIN 29.9 PG (27.0-31.0); MEAN CORPUSCULAR HGB CONC 33.5 g/dL (33.0-36.5); MEAN CORPUSCULAR VOLUME 89.5 FL (78-98); MEAN PLATELET VOLUME 7.3 FL (7.4-10.4); MONOCYTES # (AUTO) 0.6 X10'3 (0-0.9); MONOCYTES % (AUTO) 7.7 % (2-12); NEUTROPHILS # (AUTO) 5.4 X10'3 (1.8-7.7); NEUTROPHILS % (AUTO) 67.2 % (42-75); PLATELET COUNT 347 X10'3 (140-440); RED BLOOD COUNT 3.24 X10'6 (4.70-6.10); RED CELL DISTRIBUTION WIDTH 14.2 % (11.5-14.5)
[2019-01-06 05:13] LABS: ALBUMIN 2.3 G/DL (3.4-5.0); ANION GAP 8 (8-16); BLOOD UREA NITROGEN 16 MG/DL (7-18); BUN/CREATININE RATIO 13.3 (5.4-32.0); CHLORIDE 103 MMOL/L (99-107); GLUCOSE 129 MG/DL (70-104); MAGNESIUM 2.2 MG/DL (1.5-2.4); POTASSIUM 3.7 MMOL/L (3.5-5.1); SODIUM 139 MMOL/L (135-145); TOTAL CARBON DIOXIDE 28.1 MMOL/L (24-32); eGFR 60 ML/MIN
[2019-01-06 06:00] VITALS: BP 113/57
--- NOTE | 2019-01-06 06:00 | NUR ---
Reviewed and agreed with ELIZABETH Larios's charting
--- NOTE | 2019-01-06 06:15 | NUR ---
Problems reprioritized. Patient report given, questions answered & plan of care reviewed with ELIZABETH Juárez and ELIZABETH Patterson.
--- NOTE | 2019-01-06 06:46 | NUR ---
Patient in room MED 307. I have received report from Marquita JOHNSON, Enedelia JOHNSON and had the opportunity to ask questions and assume patient care.
[2019-01-06] MEDS: K and/or MAG REPLACEMENT MC SCH (08:00)
[2019-01-06] MEDS: calcium carbonate 500mg chew tablet PO SCH ×2 (08:06→13:23)
[2019-01-06] MEDS: docusate sod 100mg capsule PO SCH (08:06)
[2019-01-06] MEDS: multivitamins, therapeutics tablet PO SCH (08:06)
[2019-01-06] MEDS: gabapentin 300mg capsule PO SCH ×2 (08:06→13:22)
[2019-01-06] MEDS: pantoprazole 40mg Tablet.DR PO SCH (08:07)
[2019-01-06] MEDS: furosemide 40mg/4ml inj IV SCH (08:07)
[2019-01-06] MEDS: beta-carotene(A) w/C & E + minerals tab PO SCH (08:07)
[2019-01-06] MEDS: metoprolol tartrate 25mg tablet PO SCH (08:07)
[2019-01-06] MEDS: amiodarone 200mg tablet PO SCH ×2 (08:07→13:22)
[2019-01-06] MEDS: insulin Lispro (HumaLOG) vial - multi-dose SQ SCH (09:58)
[2019-01-06 11:00] VITALS: BP 108/52
--- NOTE | 2019-01-06 14:30 | NUR ---
Patient declined insulin coverage at this time as he is going home and didnt eat much lunch.
[2019-01-06 15:00] VITALS: BP 129/62
--- NOTE | 2019-01-06 15:50 | NUR ---
Patient was discharged in stable condition by Dr Victor. All discharge paperwork and instructions were reviewed with the patient, he had no further questions at this time. Patient was 'unsure' which medications he had at home, so was educated on the importance of checking his meds as soon as he gets home and confirming that he has them all. He was instructed to call us back, or call dr Mishra office, if he does not have them. They should be the same as what he was discharged from [facility]. His IV was removed with the catheter tip intact, there was minimal bleeding and clean gauze and tape were applied. Patient was escorted out of the hospital via wheelchair accompanied by his roommate Zabrina.
== END 2019-01-06 15:50 | disposition home health service (06) | DRG 187 ==
LOC: ER 13:28 → MED 3N 18:21 → OBSVTOIN 18:21 → CMPBEDREQ 19:47
PROVIDERS: ADMIT Internal Medicine; ATTEND Internal Medicine
PROC: 0W9930Z Drainage of Right Pleural Cavity with Drainage Device, Percutaneous Approach (ICD-10-PCS; principal; 2019-01-04)
DX: J90 Pleural effusion, not elsewhere classified (principal); J98.11 Atelectasis; D68.9 Coagulation defect, unspecified; E11.9 Type 2 diabetes mellitus without complications; E78.5 Hyperlipidemia, unspecified; G89.29 Other chronic pain; I10 Essential (primary) hypertension; M54.9 Dorsalgia, unspecified; R06.03 Acute respiratory distress; R60.0 Localized edema; I25.10 Atherosclerotic heart disease of native coronary artery without angina pectoris; I48.2 Chronic atrial fibrillation; K21.9 Gastro-esophageal reflux disease without esophagitis; K22.70 Barrett's esophagus without dysplasia; M19.90 Unspecified osteoarthritis, unspecified site; R09.02 Hypoxemia; Z79.01 Long term (current) use of anticoagulants; Z95.1 Presence of aortocoronary bypass graft
CPT/HCPCS: 32557; 36415; 71045; 80048; 80053; 82948; 83735; 84484; 85025; 85610; 85730; 87081; 93005; 96374; 99285; G0378; J1815; J1940; J2270

== ENCOUNTER 2019-01-14 16:45 | Emergency (ER) | payer MEDICARE ==
[~2019-01-14] VITALS: Ht 180.3 cm; Wt 115.9 kg
[~2019-01-14 16:45] MED LIST changes: -APIX2.5T PO; -ATOR20TA66 PO; +ATOR40TA71 PO; +CALC500T11 PO; -DICL100G15 TOP; +DOCU-20 PO; +FURO-149 PO; -HYDR-3972 PO; +HYDR-4353 PO; -HYDR25TA4 PO; -LIDO700A32 TOP; -METH500T6 PO; +RIVA15TA PO; -tamsulosin capsule PO
[2019-01-14 21:05] VITALS: BP 124/65
== END 2019-01-14 21:11 | disposition home or self-care (01) ==
LOC: ER 16:47
DX: R91.8 Other nonspecific abnormal finding of lung field (principal); I25.10 Atherosclerotic heart disease of native coronary artery without angina pectoris; I10 Essential (primary) hypertension; K21.9 Gastro-esophageal reflux disease without esophagitis; E11.9 Type 2 diabetes mellitus without complications; G89.29 Other chronic pain; Z95.1 Presence of aortocoronary bypass graft; Z79.899 Other long term (current) drug therapy; Z79.82 Long term (current) use of aspirin
CPT/HCPCS: 71046; 99283

== ENCOUNTER 2019-02-25 15:00 | Emergency (ER) | payer MEDICARE, OTHER ==
[~2019-02-25] VITALS: Ht 180.3 cm; Wt 117.0 kg
[~2019-02-25 15:00] MED LIST changes: +LIDOcaine 1% W/epiNEPHrine 1:100,000 20ml vial ONE
[2019-02-25 17:21] LABS: BASOPHILS # (AUTO) 0.1 X10'3 (0-0.2); BASOPHILS % (AUTO) 1.1 % (0-1); EOSINOPHILS # (AUTO) 0.2 X10'3 (0-0.9); HEMATOCRIT 33.9 % (42.0-52.0); HEMOGLOBIN 11.1 g/dl (14.0-17.9); LYMPHOCYTES % (AUTO) 17.2 % (21-51); MEAN CORPUSCULAR HEMOGLOBIN 28.8 PG (27.0-31.0); MEAN CORPUSCULAR HGB CONC 32.8 g/dL (33.0-36.5); MEAN CORPUSCULAR VOLUME 87.9 FL (78-98); MEAN PLATELET VOLUME 7.9 FL (7.4-10.4); MONOCYTES # (AUTO) 0.6 X10'3 (0-0.9); MONOCYTES % (AUTO) 10.8 % (2-12); NEUTROPHILS # (AUTO) 3.8 X10'3 (1.8-7.7); NEUTROPHILS % (AUTO) 66.9 % (42-75); PLATELET COUNT 189 X10'3 (140-440); RED BLOOD COUNT 3.86 X10'6 (4.70-6.10); WHITE BLOOD COUNT 5.7 X10'3 (4.5-11.0)
[2019-02-25 17:34] LABS: PARTIAL THROMBOPLASTIN TIME 32 SECONDS (22-32)
[2019-02-25 17:38] LABS: ALANINE AMINOTRANSFERASE 16 U/L (12-78); ALBUMIN 3.2 G/DL (3.4-5.0); ALBUMIN/GLOBULIN RATIO 0.9 (1.1-1.5); ALKALINE PHOSPHATASE 106 IU/L (46-116); ANION GAP 5 (8-16); ASPARTATE AMINO TRANSFERASE 6 U/L (10-37); BILIRUBIN,TOTAL 0.4 MG/DL (0.1-1.0); BLOOD UREA NITROGEN 13 MG/DL (7-18); BUN/CREATININE RATIO 10.4 (5.4-32.0); CALCIUM 8.2 MG/DL (8.5-10.1); CHLORIDE 107 MMOL/L (99-107); CREATININE 1.25 MG/DL (0.60-1.10); GLUCOSE 233 MG/DL (70-104); POTASSIUM 3.9 MMOL/L (3.5-5.1); SODIUM 143 MMOL/L (135-145); TOTAL CARBON DIOXIDE 30.6 MMOL/L (24-32); TOTAL PROTEIN 6.9 G/DL (6.4-8.2); eGFR 57 ML/MIN
--- NOTE | 2019-02-25 18:22 | NUR ---
- Zabrina Junior, would like a phone call with updates if possible
--- NOTE | 2019-02-25 20:22 | NUR ---
PER DR EVANS, DC REMAINING TROPONIN SERIES
[2019-02-25] MEDS ORDERED: furosemide 10 MG/1 ML 10ml inj IV ONE (20:50)
[2019-02-25 21:27] VITALS: BP 182/73
== END 2019-02-25 21:28 | disposition home or self-care (01) ==
LOC: ER 15:01
DX: J90 Pleural effusion, not elsewhere classified (principal); I25.10 Atherosclerotic heart disease of native coronary artery without angina pectoris; I10 Essential (primary) hypertension; K21.9 Gastro-esophageal reflux disease without esophagitis; E11.9 Type 2 diabetes mellitus without complications; G89.29 Other chronic pain; Z95.1 Presence of aortocoronary bypass graft; Z79.82 Long term (current) use of aspirin; Z79.899 Other long term (current) drug therapy
CPT/HCPCS: 32555; 36415; 71045; 80053; 83880; 84484; 85025; 85610; 85730; 93005; 96374; 99285; J1940

== ENCOUNTER 2020-12-19 08:00 | Outpatient (CLI) | payer OTHER, MEDICARE ==
[~2020-12-19] VITALS: Ht 177.8 cm; Wt 113.4 kg
[~2020-12-19 08:00] MED LIST changes: -DOCU-20 PO; +DOCU-348 PO; -LIDOcaine 1% W/epiNEPHrine 1:100,000 20ml vial ONE; +LOP25T PO; -METO25TA6 PO; +MULT-620 PO; -MULT1TAB74 PO; -OMEP20CA11 PO; +OMEP20CA15 PO
[2020-12-19 15:37] LABS: BASOPHILS # (AUTO) 0.1 X10'3 (0-0.2); BASOPHILS % (AUTO) 1.2 % (0-1); EOSINOPHILS # (AUTO) 0.2 X10'3 (0-0.9); EOSINOPHILS % (AUTO) 3.6 % (0-6); LYMPHOCYTES # (AUTO) 1.5 X10'3 (1.1-4.8); LYMPHOCYTES % (AUTO) 23.7 % (21-51); MEAN CORPUSCULAR HEMOGLOBIN 30.6 PG (27.0-31.0); MEAN CORPUSCULAR HGB CONC 33.6 g/dL (33.0-36.5); MEAN CORPUSCULAR VOLUME 91.1 FL (78-98); MEAN PLATELET VOLUME 7.9 FL (7.4-10.4); MONOCYTES # (AUTO) 0.5 X10'3 (0-0.9); MONOCYTES % (AUTO) 8.4 % (2-12); NEUTROPHILS # (AUTO) 4.1 X10'3 (1.8-7.7); NEUTROPHILS % (AUTO) 63.1 % (42-75); PRE OP HEMOGLOBIN 14.8 g/dL (14.0-17.9); PRE OP PLATELET COUNT 186 X10'3 (140-440); RED BLOOD COUNT 4.84 X10'6 (4.70-6.10); RED CELL DISTRIBUTION WIDTH 14.5 % (11.5-14.5)
[2020-12-19 15:52] LABS: ALBUMIN 3.4 G/DL (3.4-5.0); ALKALINE PHOSPHATASE 109 IU/L (46-116); BLOOD UREA NITROGEN 15 MG/DL (7-18); BUN/CREATININE RATIO 11.7 (5.4-32.0); CALCIUM 8.3 MG/DL (8.5-10.1); CHLORIDE 103 MMOL/L (99-107); CREATININE 1.28 MG/DL (0.60-1.10); PRE OP ALT 17 U/L (30-65); PRE OP ANION GAP 9 (8-16); PRE OP AST 11 U/L (10-37); PRE OP BILIRUB, TOTAL 0.5 MG/DL (0.0-1.0); PRE OP GLUCOSE 168 MG/DL (70-104); PRE OP POTASSIUM 3.6 MMOL/L (3.4-5.1); PRE OP SODIUM 142 MMOL/L (135-145); TOTAL CARBON DIOXIDE 30.1 MMOL/L (24-32); TOTAL PROTEIN 6.9 G/DL (6.4-8.2); eGFR 55 ML/MIN
[2020-12-19] MEDS ORDERED: MAGN400C PO (16:17)
[2020-12-19] MEDS ORDERED: CARV-50 PO (16:17)
[2020-12-19] MEDS ORDERED: METF-900 PO (16:17)
[2020-12-19] MEDS ORDERED: MORP-92 PO (16:17)
[2020-12-19] MEDS ORDERED: HYDR-3964 PO (16:17)
[2020-12-19] MEDS ORDERED: LISI1TAB51 PO (16:17)
[2020-12-19] MEDS ORDERED: GLIP5TAB13 PO (16:17)
[2020-12-19] MEDS ORDERED: VITA-268 PO (16:17)
[2020-12-19] MEDS ORDERED: FINA5TAB11 PO (16:17)
[2020-12-19] MEDS ORDERED: FLO0.4C PO (16:17)
[2020-12-19] MEDS ORDERED: METH-797 PO (16:17)
[2020-12-19] MEDS ORDERED: EMPA10TA PO (16:17)
[2020-12-24] MEDS ORDERED: ringers solution, lacted 1,000 ML IV SCH (05:00)
[2020-12-24] MEDS ORDERED: vancomycin 1,500 MG in NS 300ml IV soln IV ONE (05:30)
[2020-12-24] MEDS ORDERED: tranexamic acid 650mg tablet PO ONE (05:30)
[2020-12-24] MEDS ORDERED: famotidine 20mg tablet PO ONE (05:30)
[2020-12-24] MEDS ORDERED: cefazolin/dext.iso 2gm/100ml IV ONE (05:30)
[2020-12-24] MEDS ORDERED: DOCUMENT DATE & TIME OF BETA-BLOCKER PO ONE (05:30)
== END 2020-12-19 23:00 | disposition home or self-care (01) ==
LOC: LAB 08:00 → EDSTATUS 12-24 10:00
PROVIDERS: ATTEND Orthopaedic Surgery
DX: Z01.812 Encounter for preprocedural laboratory examination (principal); M25.512 Pain in left shoulder; M75.122 Complete rotator cuff tear or rupture of left shoulder, not specified as traumatic; M19.012 Primary osteoarthritis, left shoulder; Z20.822 Contact with and (suspected) exposure to COVID-19
CPT/HCPCS: 36415; 71046; 80053; 83036; 85025; 87081; U0003; U0005; J3370; J7040; J7120